=== PATIENT | male | born 1940 | race African-American/Black ===

== ENCOUNTER 2016-05-12 15:17 | Emergency (ER) | payer MEDICARE, MEDICAID ==
[~2016-05-12] VITALS: Ht 167.6 cm; Wt 70.3 kg
[~2016-05-12 15:17] MED LIST: ALPRAZOLAM0.25 MG ORAL; ANACIN BC; BENTYL10 MG ORAL; LINZESS145 MCG PO; LOPERAMIDE1 MG/7.5 M PO; NORCO 5-325 TA1 EACH PO; NUCYNTA ER100 MG PO; TEMAZEPAM30 MG ORAL; TRAMADOL HCL50 MG ORAL
[2016-05-12 16:49] VITALS: BP 94/66
[2016-05-12] MEDS ORDERED: Lidocaine 1% MPF 10mg/ml 5ml INJ ONE (17:00)
--- NOTE | 2016-05-12 17:18 | Diagnostic Imaging Report ---
Indication: PAIN Technique: 3 views right hand Comparison: none Findings: There are degenerative proliferative changes of the distal ulna and degenerative remodeling of the radioulnar joint. There is degenerative narrowing of the radiocarpal joint. There is heterotopic ossification adjacent to the ulnar styloid, may reflect old trauma. No definite acute fractures, dislocations, or osseous erosions. Is old healed fracture deformity of the first minute carpal. There are mild degenerative changes of the third fourth and fifth distal interphalangeal joints. Punctate metallic radiopaque foreign bodies are seen within the soft tissues of the distal fourth digit. There are vascular calcifications Impression: Degenerative and posttraumatic changes, as described Foreign bodies within the distal fourth digit No acute bony trauma or acute osseous erosions Findings discussed by phone with Dr. Ramos previously
[2016-05-12] MEDS ORDERED: Tylenol #3 tab (300mg/30mg) ORAL ONE (17:30)
[2016-05-12] MEDS ORDERED: ACETAMINOPHEN-1 EAC1 ORAL (17:32)
--- NOTE | 2016-05-12 17:34 | Emergency Room Report ---
History of Present Illness General Chief Complaint: Pain Source: Patient Present Illness HPI The patient is a 76 yo M presenting with R wrist pain which began two days prior. The pain is described as an 8/10 dull ache and is worse with movement or touch. No radiating pain. The patient denies any prior injury to the wrist and is unsure of why the pain began. The patient denies known history of gout or arthritis. The patient denies N, V, F, chills, CP, SOB, diaphoresis, numbness.tingling. Allergies: Coded Allergies: PENICILLINS (Verified Allergy, 04/16/12) Patient History Past Medical History: see triage record Pertinent Family History: none Reviewed Nursing Documentation: PMH: Agreed, PSxH: Agreed Nursing Documentation-PMH Past Medical History: No History, Except For Hx Cardiac Problems: No Hx Asthma: Yes Hx Cancer: Yes - LYMPHOMA, RIGHT EYE Hx Gastrointestinal Problems: Yes Hx Neurological Problems: No Review of Systems All Other Systems: negative except mentioned in HPI Physical Exam Vital Signs Date Time Temp Pulse Resp B/P Pulse Ox O2 Delivery O2 Flow Rate FiO2 05/12/16 15:44 97.9 94 16 94/66 100 Room Air Sp02 EP Interpretation: reviewed, normal General Appearance: no apparent distress, alert, GCS 15, non-toxic Head: normocephalic, atraumatic Eyes: bilateral eye PERRL, bilateral eye normal inspection ENT: hearing grossly normal, normal pharynx, no angioedema, normal voice Musculoskeletal: digits/nails normal, decreased range of motion - decreased wrist AROM , tender - TTP diffusely over R wrist Neurologic: alert, oriented x3, responsive, motor strength/tone normal Psychiatric: judgement/insight normal, memory normal, mood/affect normal, no suicidal/homicidal ideation Skin: other - erythema to R wrist Lymphatic: no adenopathy Procedures Splinting Splinting : Consent: Verbal Location: R wrist Pre-Made Type: velcro Splint: wrist Pre-Proc Neuro Vasc Exam: normal Post-Proc Neuro Vasc Exam: normal Patient Tolerated: Well Complications: None Additional Procedure Procedure Narrative Joint aspiration was attempted for the R wrist. The skin was cleaned with betadine. 3mL of lidocaine w.o epi was used for local anaesthesia. A 20g needle was used for aspiration of the joint. No fluid was seen. Medical Decision Making PA Attestation Dr. Ramos is my supervising physician. Patient management was discussed with my supervising physician Diagnostic Impression: Primary Impression: Osteoarthritis ER Course The patient is a 76 yo M presenting with R wrist pain which began two days prior DDx: arthritis, gout, septic joint, sprain PE: vitals wnl. NAD. R wrist: there is mild erythema and edema to the wrist. TTP diffusely. Decreased AROM of wrist. SILT. Joint aspiration was attempted for the R wrist. The skin was cleaned with betadine. 3mL of lidocaine w.o epi was used for local anaesthesia. A 20g needle was used for aspiration of the joint. No fluid was seen. The patient has chosen to leave before laboratory results. The patient understands the risks of this. Labs: No leukocytosis. Uric acid WNL. Patient was given tylenol #3 for pain. ER precautions given. Patient will FU with PMD. Patient given prescription for indomethacin. Other X-Ray Diagnostic Results Other X-Ray Diagnostic Results : X-Ray Ordered: R hand Date: May 13, 2016 EP Interpretation: Yes Findings: no fractures, no dislocation, no soft tissue swelling Number of Views: 3 PA Scribe Text I'm acting as scribe for my supervising physician. My supervising physician's interpretation of the R hand xrays are there are no fractures, dislocations or soft tissue swelling. Last Vital Signs Date Time Temp Pulse Resp B/P Pulse Ox O2 Delivery O2 Flow Rate FiO2 05/12/16 17:03 97.9 05/12/16 16:49 89 16 94/66 100 Room Air Status: improved Disposition: HOME, SELF-CARE Condition: Improved Scripts Indomethacin (INDOMETHACIN) 50 Mg Capsule 50 MG PO Q8HR, #30 CAP Prov: TERZIAN,DAJUAN P.A. 05/12/16 Acetaminophen With Codeine (T#3) (TYLENOL #3 TAB*) Y Tab 1 TAB ORAL Q4H Y for For Pain, #15 TAB Prov: TERZIAN,DAJUAN P.A. 05/12/16 Patient Instructions: Arthritis Additional Instructions: I discussed my findings with the patient. All questions and concerns have been answered. Treatment and medication compliance have been addressed. I advised the patient that they need to follow up with PMD in 3-5 days. Return to ED if pain remains or worsens, numbness or tingling occurs, new rash is noticed, fever is noticed, or if needed for any reason. Patient verbalized understanding of discharge instructions. DAJUAN MASTERS May 12, 2016 17:34
[2016-05-12 17:50] VITALS: BP 104/66
[2016-05-12 17:53] LABS: BASOPHILS % (AUTO) 0.9 % (0.0-2.0); EOSINOPHILS % (AUTO) 0.5 % (0.0-3.0); LYMPHOCYTES % (AUTO) 12.5 % (20.0-45.0); MEAN CORPUSCULAR HEMOGLOBIN 31.3 PG (27.0-31.0); MEAN CORPUSCULAR HGB CONC 31.7 G/DL (32.0-36.0); MEAN CORPUSCULAR VOLUME 99 FL (80-99); MEAN PLATELET VOLUME 7.2 FL (6.5-10.1); MONOCYTES % (AUTO) 12.7 % (1.0-10.0); NEUTROPHILS % (AUTO) 73.5 % (45.0-75.0); PLATELET COUNT 231 K/UL (150-450); RED BLOOD COUNT 3.82 M/UL (4.70-6.10); RED CELL DISTRIBUTION WIDTH 13.9 % (11.6-14.8); WHITE BLOOD COUNT 10.2 K/UL (4.8-10.8)
[2016-05-12 18:13] LABS: ALANINE AMINOTRANSFERASE 6 U/L (3-41); ALBUMIN/GLOBULIN RATIO 1.4 (1.0-2.7); ANION GAP 20 (5-15); ASPARTATE AMINO TRANSFERASE 19 U/L (5-40); CALCIUM 9.3 mg/dL (8.6-10.2); CARBON DIOXIDE 19 mEQ/L (20-30); CHLORIDE 100 mEQ/L (98-107); CREATININE 1.3 mg/dL (0.7-1.2); HEMOLYSIS 30; POTASSIUM 4.5 mEQ/L (3.4-4.9); SODIUM 139 mEQ/L (135-145); TOTAL PROTEIN 7.3 g/dL (6.6-8.7)
[2016-05-12] MEDS ORDERED: INDOMETHACIN50 MG PO (18:17)
[2016-05-12 19:11] LABS: BILIRUBIN,DIRECT 0.2 mg/dL (0.1-0.3)
== END 2016-05-12 17:53 | disposition home or self-care (01) ==
LOC: EMR 16:40
DX: M19.031 Primary osteoarthritis, right wrist (principal); M25.531 Pain in right wrist; Z88.0 Allergy status to penicillin; Z85.89 Personal history of malignant neoplasm of other organs and systems
CPT/HCPCS: 29260; 36415; 80053; 82248; 84550; 85025; 99284

== ENCOUNTER → 2016-06-27 | Outpatient (CLI) | payer MEDICARE, MEDICAID ==
[~2016-06-27] MED LIST changes: +ACETAMINOPHEN-1 EAC1 ORAL; +INDOMETHACIN50 MG PO
[2016-06-27 15:09] VITALS: BP 125/78
--- NOTE | 2016-06-27 19:29 | Consultation ---
DATE OF CONSULTATION: 06/27/2016 CHIEF COMPLAINT: Referred to us for evaluation of colonoscopy. PAST MEDICAL HISTORY: 1. Hepatitis C. 2. History of gastric ulcer, H. pylori - negative. 3. Arthritis. 4. Gout. 5. Diverticulosis. Last endoscopy was done in February 2012. 6. Last colonoscopy was done on the October 2011. PAST SURGICAL HISTORY: History of eye surgery on the right side. MEDICATIONS: Please see medication reconciliation list. FAMILY HISTORY: Noncontributory. SOCIAL HISTORY: The patient denies any tobacco, alcohol, or drug abuse. ALLERGIES: Penicillin. PHYSICAL EXAMINATION: VITAL SIGNS: Temperature 97.5, blood pressure 125/78, pulse 83, respirations 20. Height is 5 feet 6 inches weight 163. HEENT: Normocephalic and atraumatic. Sclerae anicteric. NECK: Supple. No evidence of lymphadenopathy. CARDIOVASCULAR: Regular rate and rhythm. Plus S1 and S2. LUNGS: Clear to auscultation bilaterally. ABDOMEN: Positive bowel sounds. Soft and nontender. No rebound. No guarding. No peritoneal sign. EXTREMITIES: No cyanosis. No clubbing. No edema. ASSESSMENT: Hepatitis C. the patient got treatment by Dr. Dai at [facility]. According to him, he already had followup laboratories and everything was cleared and he said he was cured and no further followup was needed. In terms of the patient's GI standpoint, the patient needs a colonoscopy given it is in 5 years from the last one but the patient is not adamantly refuses, he does not want any anoscope, so we ordered a stool for DNA testing for colon cancer. We gave a prescription to him to take . Meanwhile we told him if he change his mind to have a colonoscopy to call us back. I want to thank, Dr. Maury Grover for this kind referral. Talat Alvarado M.D. DR: Fer JOB#: [id number] CC: Maury Grover M.D.; Fax#: [phone]
== END | disposition home or self-care (01) ==
LOC: PAN 10:25
DX: B19.20 Unspecified viral hepatitis C without hepatic coma (principal); Z88.0 Allergy status to penicillin; M19.90 Unspecified osteoarthritis, unspecified site
CPT/HCPCS: 99201

== ENCOUNTER 2016-09-17 14:12 | Emergency (ER) | payer MEDICARE, MEDICAID ==
[~2016-09-17] VITALS: Ht 167.6 cm; Wt 72.6 kg
[2016-09-17 14:30] VITALS: BP 164/96
--- NOTE | 2016-09-17 14:39 | Emergency Room Report ---
History of Present Illness General Chief Complaint: Generalized Weakness Source: Patient Present Illness HPI Patient is a 76-year-old male who presented after increased generalized weakness. Patient reported having generalized body aches as well as abdominal pain. Patient said this had onset over the past one to 2 days. Patient reported not being able eat as well as a generalized weakness. He denies any recent fever. He reports running out of his pain medication approximately one week ago. The patient stated that he had not been vomiting. He denied diarrhea. He denied black or bloody stools. Allergies: Coded Allergies: PENICILLINS (Verified Allergy, 04/16/12) Patient History Past Medical History: see triage record Reviewed Nursing Documentation: PMH: Agreed, PSxH: Agreed Nursing Documentation-PMH Past Medical History: No History, Except For Hx Cardiac Problems: No Hx Asthma: Yes Hx COPD: Yes Hx Cancer: Yes - LYMPHOMA, RIGHT EYE Hx Gastrointestinal Problems: Yes Hx Neurological Problems: No Review of Systems All Other Systems: negative except mentioned in HPI Physical Exam Vital Signs Date Time Temp Pulse Resp B/P Pulse Ox O2 Delivery O2 Flow Rate FiO2 09/17/16 14:22 97.7 104 18 164/96 98 Room Air Sp02 EP Interpretation: reviewed, normal General Appearance: normal inspection, well appearing, no apparent distress, alert, GCS 15, non-toxic Head: atraumatic ENT: normal ENT inspection, hearing grossly normal, normal voice Neck: normal inspection, full range of motion, supple, no bony tend Respiratory: normal inspection, lungs clear, normal breath sounds, no respiratory distress, no retraction, no wheezing Cardiovascular #1: regular rate, rhythm, no edema Gastrointestinal: normal inspection, normal bowel sounds, non tender, soft, no guarding, no hernia Genitourinary: no CVA tenderness Musculoskeletal: normal inspection, back normal, normal range of motion Neurologic: normal inspection, alert, oriented x3, responsive, speech normal Psychiatric: normal inspection, judgement/insight normal, mood/affect normal Skin: normal inspection, normal color, no rash Medical Decision Making Diagnostic Impression: Primary Impression: Abdominal pain Additional Impression: Renal insufficiency ER Course Patient presented for generalized weakness and abdominal pain. Differential diagnoses included ischemic bowel, appendicitis, perforated viscus, abdominal aortic aneurysm, inferior myocardial infarction, viral gastroenteritis, medication withdrawal, renal failure Because of complexity of patient's case laboratory testing and imaging studies were ordered.EKG interpreted by me showed normal sinus rhythm with a rate of [address] or T wave changes. Patient was started on IV fluids. The patient stated that he no longer wanted to remain in the hospital. The patient' s laboratory testing was not available at the time of discussion. The patient was advised risk benefits alternatives of leaving AGAINST MEDICAL ADVICE and he indicated understanding and all questions are answered patient still continued want to leave and signed AGAINST MEDICAL ADVICE. Despite risks including but not limited to disability and worsening of current lifestyle. The patient stated he would follow up with Dr. Grover tomorrow Labs Test 09/17/16 15:30 09/17/16 15:37 Urine Color Yellow Urine Appearance Clear Urine pH 5 (4.5-8.0) Urine Specific [place] 1.025 (1.005-1.035) Urine Protein 2+ (NEGATIVE) Urine Glucose (UA) Negative (NEGATIVE) Urine Ketones 2+ (NEGATIVE) Urine Occult Blood 3+ (NEGATIVE) Urine Nitrite Positive (NEGATIVE) Urine Bilirubin Negative (NEGATIVE) Urine Urobilinogen Normal MG/DL (0.0-1.0) Urine Leukocyte Esterase 2+ (NEGATIVE) Urine RBC 5-10 /HPF (0 - 0) Urine WBC 2-4 /HPF (0 - 0) Urine Squamous Epithelial Cells None /LPF (NONE/OCC) Urine Amorphous Sediment Few /LPF (NONE) Urine Bacteria Few /HPF (NONE) White Blood Count 10.2 K/UL (4.8-10.8) Red Blood Count 4.48 M/UL (4.70-6.10) Hemoglobin 14.4 G/DL (14.2-18.0) Hematocrit 43.2 % (42.0-52.0) Mean Corpuscular Volume 97 FL (80-99) Mean Corpuscular Hemoglobin 32.2 PG (27.0-31.0) Mean Corpuscular Hemoglobin Concent 33.4 G/DL (32.0-36.0) Red Cell Distribution Width 12.9 % (11.6-14.8) Platelet Count 254 K/UL (150-450) Mean Platelet Volume 6.7 FL (6.5-10.1) Neutrophils (%) (Auto) 73.3 % (45.0-75.0) Lymphocytes (%) (Auto) 14.1 % (20.0-45.0) Monocytes (%) (Auto) 11.1 % (1.0-10.0) Eosinophils (%) (Auto) 0.4 % (0.0-3.0) Basophils (%) (Auto) 1.2 % (0.0-2.0) Sodium Level 135 mEQ/L (135-145) Potassium Level 4.7 mEQ/L (3.4-4.9) Chloride Level 96 mEQ/L (98-107) Carbon Dioxide Level 21 mEQ/L (20-30) Anion Gap 18 (5-15) Blood Urea Nitrogen 20 mg/dL (7-23) Creatinine 1.6 mg/dL (0.7-1.2) Estimat Glomerular Filtration Rate mL/min (>60) Glucose Level 92 mg/dL (74-106) Calcium Level 10.0 mg/dL (8.6-10.2) Total Bilirubin 1.5 mg/dL (0.0-1.2) Direct Bilirubin 0.2 mg/dL (0.1-0.3) Aspartate Amino Transf (AST/SGOT) 17 U/L (5-40) Alanine Aminotransferase (ALT/SGPT) 6 U/L (3-41) Alkaline Phosphatase 57 U/L (40-129) Troponin I < 0.30 ng/mL (<=0.30) Total Protein 8.7 g/dL (6.6-8.7) Albumin 4.6 g/dL (3.5-5.2) Globulin 4.1 g/dL Albumin/Globulin Ratio 1.1 (1.0-2.7) Lipase 13 U/L (< 60) Last Vital Signs Date Time Temp Pulse Resp B/P Pulse Ox O2 Delivery O2 Flow Rate FiO2 09/17/16 14:30 97.7 18 164/96 98 Room Air 09/17/16 14:22 104 Status: improved Disposition: AGAINST MEDICAL ADVICE Condition: Unknown Charlie Lopez Sep 17, 2016 14:39
[2016-09-17 16:25] VITALS: BP 164/96
[2016-09-17 16:27] LABS: BASOPHILS % (AUTO) 1.2 % (0.0-2.0); EOSINOPHILS % (AUTO) 0.4 % (0.0-3.0); LYMPHOCYTES % (AUTO) 14.1 % (20.0-45.0); MEAN CORPUSCULAR HEMOGLOBIN 32.2 PG (27.0-31.0); MEAN CORPUSCULAR HGB CONC 33.4 G/DL (32.0-36.0); MEAN CORPUSCULAR VOLUME 97 FL (80-99); MEAN PLATELET VOLUME 6.7 FL (6.5-10.1); MONOCYTES % (AUTO) 11.1 % (1.0-10.0); NEUTROPHILS % (AUTO) 73.3 % (45.0-75.0); PLATELET COUNT 254 K/UL (150-450); RED BLOOD COUNT 4.48 M/UL (4.70-6.10); RED CELL DISTRIBUTION WIDTH 12.9 % (11.6-14.8); WHITE BLOOD COUNT 10.2 K/UL (4.8-10.8)
[2016-09-17 16:28] LABS: ALANINE AMINOTRANSFERASE 6 U/L (3-41); ALBUMIN/GLOBULIN RATIO 1.1 (1.0-2.7); ANION GAP 18 (5-15); ASPARTATE AMINO TRANSFERASE 17 U/L (5-40); CARBON DIOXIDE 21 mEQ/L (20-30); CHLORIDE 96 mEQ/L (98-107); CREATININE 1.6 mg/dL (0.7-1.2); HEMOLYSIS 2; LIPASE 13 U/L (< 60); POTASSIUM 4.7 mEQ/L (3.4-4.9); SODIUM 135 mEQ/L (135-145); TOTAL PROTEIN 8.7 g/dL (6.6-8.7)
[2016-09-17 16:28] LABS: APPEARANCE,URINE CLEAR; KETONES,URINE 2+ (NEGATIVE); LEUKOCYTE ESTERASE ,URINE 2+ (NEGATIVE); NITRITE,URINE POSITIVE (NEGATIVE); PH,URINE 5 (4.5-8.0); PROTEIN,URINE 2+ (NEGATIVE); UROBILINOGEN,URINE NORMAL MG/DL (0.0-1.0)
[2016-09-17 16:40] LABS: AMORPHOUS SEDIMENT,UR FEW /LPF; BACTERIA,URINE FEW /HPF
[2016-09-17 16:41] LABS: BILIRUBIN,DIRECT 0.2 mg/dL (0.1-0.3)
[2016-09-17 16:42] LABS: TROPONIN I < 0.30 ng/mL (<=0.30)
== END 2016-09-17 16:25 | disposition left against medical advice (07) ==
LOC: EMR 14:47
DX: R51 Headache (principal); R10.9 Unspecified abdominal pain; R53.1 Weakness; J44.9 Chronic obstructive pulmonary disease, unspecified; Z85.72 Personal history of non-Hodgkin lymphomas; Z88.0 Allergy status to penicillin; N28.9 Disorder of kidney and ureter, unspecified
CPT/HCPCS: 36415; 80053; 81003; 82248; 82962; 83690; 84484; 85025; 93005; 96374; 96375; 99284; J2405; J7040

== ENCOUNTER 2016-10-11 12:57 | Outpatient (CLI) | payer MEDICARE, MEDICAID ==
[2016-10-11 13:20] VITALS: BP 133/84
[2016-10-11 14:49] LABS: BASOPHILS % (AUTO) 0.8 % (0.0-2.0); EOSINOPHILS % (AUTO) 1.1 % (0.0-3.0); LYMPHOCYTES % (AUTO) 22.2 % (20.0-45.0); MEAN CORPUSCULAR HEMOGLOBIN 31.6 PG (27.0-31.0); MEAN CORPUSCULAR HGB CONC 32.3 G/DL (32.0-36.0); MEAN CORPUSCULAR VOLUME 98 FL (80-99); MEAN PLATELET VOLUME 6.3 FL (6.5-10.1); MONOCYTES % (AUTO) 10.8 % (1.0-10.0); NEUTROPHILS % (AUTO) 65.2 % (45.0-75.0); PLATELET COUNT 239 K/UL (150-450); RED BLOOD COUNT 3.84 M/UL (4.70-6.10); RED CELL DISTRIBUTION WIDTH 13.7 % (11.6-14.8); WHITE BLOOD COUNT 7.3 K/UL (4.8-10.8)
[2016-10-11 15:09] LABS: ALANINE AMINOTRANSFERASE 7 U/L (3-41); ALBUMIN/GLOBULIN RATIO 1.3 (1.0-2.7); AMYLASE 80 U/L (10-110); ANION GAP 13 (5-15); ASPARTATE AMINO TRANSFERASE 17 U/L (5-40); CALCIUM 9.2 mg/dL (8.6-10.2); CARBON DIOXIDE 21 mEQ/L (20-30); CHLORIDE 104 mEQ/L (98-107); CREATININE 1.3 mg/dL (0.7-1.2); HEMOLYSIS 7; LIPASE 29 U/L (< 60); SODIUM 138 mEQ/L (135-145); TOTAL PROTEIN 7.1 g/dL (6.6-8.7)
--- NOTE | 2016-10-11 15:19 | GI Progress Note ---
Assessment/Plan Problems: (1) Abdominal bloating ICD Codes: R14.0 - Abdominal distension (gaseous) SNOMED: 812747991 (2) Constipation ICD Codes: K59.00 - Constipation, unspecified SNOMED: 17857810 (3) Abdominal pain ICD Codes: R10.9 - Unspecified abdominal pain SNOMED: 44376461 Status: stable Status Narrative Seen with Dr. Alvarado. Assessment/Plan patient refusing colonoscopy cont [facility] lab draws; CBC, CMP, CEA, CA19-9, amylase/lipase ordered Abdominal U/S rx MVI daily RTC after imaging studies Subjective Subjective abdominal distention / bloating weakness in leg general fatigue Objective Last 24 Hour Vital Signs Date Time Temp Pulse Resp B/P Pulse Ox O2 Delivery O2 Flow Rate FiO2 10/11/16 13:20 97.6 86 16 133/84 96 Laboratory Tests Test 10/11/16 13:53 White Blood Count 7.3 K/UL (4.8-10.8) Red Blood Count 3.84 M/UL (4.70-6.10) L Hemoglobin 12.1 G/DL (14.2-18.0) L Hematocrit 37.6 % (42.0-52.0) L Mean Corpuscular Volume 98 FL (80-99) Mean Corpuscular Hemoglobin 31.6 PG (27.0-31.0) H Mean Corpuscular Hemoglobin Concent 32.3 G/DL (32.0-36.0) Red Cell Distribution Width 13.7 % (11.6-14.8) Platelet Count 239 K/UL (150-450) Mean Platelet Volume 6.3 FL (6.5-10.1) L Neutrophils (%) (Auto) 65.2 % (45.0-75.0) Lymphocytes (%) (Auto) 22.2 % (20.0-45.0) Monocytes (%) (Auto) 10.8 % (1.0-10.0) H Eosinophils (%) (Auto) 1.1 % (0.0-3.0) Basophils (%) (Auto) 0.8 % (0.0-2.0) Sodium Level 138 mEQ/L (135-145) Potassium Level 4.0 mEQ/L (3.4-4.9) Chloride Level 104 mEQ/L (98-107) Carbon Dioxide Level 21 mEQ/L (20-30) Anion Gap 13 (5-15) Blood Urea Nitrogen 23 mg/dL (7-23) Creatinine 1.3 mg/dL (0.7-1.2) H Estimat Glomerular Filtration Rate mL/min (>60) Glucose Level 88 mg/dL (74-106) Calcium Level 9.2 mg/dL (8.6-10.2) Total Bilirubin 0.7 mg/dL (0.0-1.2) Aspartate Amino Transf (AST/SGOT) 17 U/L (5-40) Alanine Aminotransferase (ALT/SGPT) 7 U/L (3-41) Alkaline Phosphatase 48 U/L (40-129) Total Protein 7.1 g/dL (6.6-8.7) Albumin 4.1 g/dL (3.5-5.2) Globulin 3.0 g/dL Albumin/Globulin Ratio 1.3 (1.0-2.7) Amylase Level 80 U/L (10-110) Lipase 29 U/L (< 60) Carcinoembryonic Antigen Pending General Appearance: WD/WN, no apparent distress, alert Cardiovascular: normal rate Respiratory/Chest: lungs clear, normal breath sounds, no respiratory distress Abdominal Exam: normal bowel sounds, non tender, soft, no organomegaly, no mass Genitourinary/Rectal: normal genital exam Extremities: normal range of motion Rhonda Osborne N.P. Oct 11, 2016 15:19
== END 2016-10-11 13:45 | disposition home or self-care (01) ==
LOC: PAN 12:57
DX: R14.0 Abdominal distension (gaseous) (principal); K59.00 Constipation, unspecified; R10.9 Unspecified abdominal pain
CPT/HCPCS: 36415; 80053; 82150; 82378; 83690; 85025; G0463; 99211

== ENCOUNTER 2018-02-17 14:43 | Inpatient (IN) | payer MEDICARE, MEDICAID ==
[~2018-02-17] VITALS: Ht 170.2 cm; Wt 72.6 kg
[2018-02-17 15:15] VITALS: BP 138/88
[2018-02-17 15:33] LABS: BASOPHILS % (AUTO) 0.7 % (0.0-2.0); EOSINOPHILS % (AUTO) 0.1 % (0.0-3.0); HEMATOCRIT 34.8 % (42.0-52.0); HEMOGLOBIN 12.1 G/DL (14.2-18.0); LYMPHOCYTES % (AUTO) 11.8 % (20.0-45.0); MEAN CORPUSCULAR VOLUME 90 FL (80-99); NEUTROPHILS % (AUTO) 73.4 % (45.0-75.0); PLATELET COUNT 303 K/UL (150-450); RED BLOOD COUNT 3.88 M/UL (4.70-6.10); RED CELL DISTRIBUTION WIDTH 12.7 % (11.6-14.8); WHITE BLOOD COUNT 8.7 K/UL (4.8-10.8)
[2018-02-17] MEDS ORDERED: CRESTOR10 M2 ORAL (15:35)
[2018-02-17] MEDS ORDERED: ASPIR 8181 MG ORAL (15:35)
[2018-02-17] MEDS ORDERED: NAPROXEN250 MG ORAL (15:35)
[2018-02-17] MEDS ORDERED: RELPAX40 MG PO (15:38)
[2018-02-17] MEDS ORDERED: NUCYNTA50 MG PO (15:38)
[2018-02-17 15:48] LABS: ANION GAP 13 mmol/L (5-15); BLOOD UREA NITROGEN 18 mg/dL (7-18); CALCIUM 9.9 MG/DL (8.5-10.1); CARBON DIOXIDE 25 MMOL/L (21-32); CHLORIDE 101 MMOL/L (98-107); CREATININE 1.3 MG/DL (0.55-1.30); POTASSIUM 3.3 MMOL/L (3.5-5.1); SODIUM 139 MMOL/L (136-145)
[2018-02-17 15:54] LABS: AMMONIA < 10 umol/L (11-32)
[2018-02-17 16:01] LABS: ALANINE AMINOTRANSFERASE 13 U/L (12-78); ALBUMIN 2.7 G/DL (3.4-5.0); ALBUMIN/GLOBULIN RATIO 0.5 (1.0-2.7); ALKALINE PHOSPHATASE 69 U/L (46-116); ASPARTATE AMINO TRANSFERASE 25 U/L (15-37); BILIRUBIN,TOTAL 1.2 MG/DL (0.2-1.0); CKMB < 0.5 NG/ML (0.0-3.6); CREATINE KINASE 44 U/L (26-308)
[2018-02-17 16:18] LABS: BILIRUBIN,DIRECT 0.3 MG/DL (0.0-0.3)
[2018-02-17 17:01] VITALS: BP 155/94
[2018-02-17 17:49] VITALS: BP 136/82
--- NOTE | 2018-02-17 17:59 | Emergency Room Report ---
History of Present Illness General Chief Complaint: Pain Source: Patient Present Illness HPI 77-year-old male presents ED for evaluation. Patient brought in by daughter. States that he's been complaining of left-sided back pain for the last few days. Also appears confused and lethargic for last few days. Daughter states that patient was seen at [facility] a few days ago for similar presentation but was discharge. There are no what the diagnosis was. Patient is complaining of left-sided hip pain and some right wrist pain. Daughter also states that patient took some "pain medication" earlier today. Does not know what the medication was. Patient denies alcohol or drug use. Denies headache. Denies fevers chills. No other aggravating relieving factors. Denies any other associated symptoms Allergies: Coded Allergies: PENICILLINS (Verified Allergy, 04/16/12) Patient History Past Medical History: asthma, COPD Past Surgical History: none Pertinent Family History: none Social History: Denies: smoking, alcohol use, drug use Immunizations: UTD Reviewed Nursing Documentation: PMH: Agreed; PSxH: Agreed Nursing Documentation-PMH Past Medical History: No History, Except For Hx Cardiac Problems: No Hx Asthma: Yes Hx COPD: Yes Hx Cancer: Yes - LYMPHOMA, RIGHT EYE Hx Gastrointestinal Problems: Yes Hx Neurological Problems: No Review of Systems All Other Systems: negative except mentioned in HPI Physical Exam Vital Signs Date Time Temp Pulse Resp B/P (MAP) Pulse Ox O2 Delivery O2 Flow Rate FiO2 02/17/18 14:47 98.8 114 22 143/91 96 Room Air Sp02 EP Interpretation: reviewed, normal General Appearance: no apparent distress, GCS 15, non-toxic, lethargic Head: normocephalic, atraumatic Eyes: bilateral eye normal inspection, bilateral eye PERRL ENT: normal ENT inspection Neck: normal inspection Respiratory: chest non-tender, lungs clear, normal breath sounds, speaking full sentences Cardiovascular #1: regular rate, rhythm, no edema Gastrointestinal: normal bowel sounds, non tender, soft, non-distended, no guarding, no rebound Rectal: deferred Genitourinary: no CVA tenderness Musculoskeletal: tender - L hip. R wrist Neurologic: other - lethargic Psychiatric: other - lethargic Skin: normal inspection Lymphatic: normal inspection Medical Decision Making Diagnostic Impression: Primary Impression: Altered mental status Qualified Codes: R41.82 - Altered mental status, unspecified ER Course Hospital Course 77-year-old M presents to ED with altered mental status. R wrist pain, L hip pain Differential diagnoses include: fracture, EtOH, drug abuse Clinical course patient placed on stretcher. On fibreglass lay up worker. After initial history and physical ordered labs, IV fluids, EKG, CT brain/spine/pelvis Labs reviewed-electrolytes okay, no leukocytosis, hemoglobin/hematocrit stable, ETOH negative CT brain shows no acute pathology, CT Pelvis - no acute fx, CT L spine severe DJD EKG- NSR, no acute ischemic changes interpreted by me patient remains lethargic. Possible polypharmacy. Utox pending patient will require admission for observation. Patient will be admitted to Dr Reilly poole. I feel this is a highly complex case requiring extensive working including EKG/Rhythm strip, Xray/CT/US, Blood/urine lab work, repeat exams while in ED, and administration of strong opiates/narcotics for pain control, admission to hospital or close patient follow up. Diagnosis -altered mental status Stable and discharged to home. Followup with PMD. Return to ED if symptoms recur or worsen Labs Test 02/17/18 15:15 White Blood Count 8.7 K/UL (4.8-10.8) Red Blood Count 3.88 M/UL (4.70-6.10) Hemoglobin 12.1 G/DL (14.2-18.0) Hematocrit 34.8 % (42.0-52.0) Mean Corpuscular Volume 90 FL (80-99) Mean Corpuscular Hemoglobin 31.1 PG (27.0-31.0) Mean Corpuscular Hemoglobin Concent 34.7 G/DL (32.0-36.0) Red Cell Distribution Width 12.7 % (11.6-14.8) Platelet Count 303 K/UL (150-450) Mean Platelet Volume 6.2 FL (6.5-10.1) Neutrophils (%) (Auto) 73.4 % (45.0-75.0) Lymphocytes (%) (Auto) 11.8 % (20.0-45.0) Monocytes (%) (Auto) 14.0 % (1.0-10.0) Eosinophils (%) (Auto) 0.1 % (0.0-3.0) Basophils (%) (Auto) 0.7 % (0.0-2.0) Sodium Level 139 MMOL/L (136-145) Potassium Level 3.3 MMOL/L (3.5-5.1) Chloride Level 101 MMOL/L (98-107) Carbon Dioxide Level 25 MMOL/L (21-32) Anion Gap 13 mmol/L (5-15) Blood Urea Nitrogen 18 mg/dL (7-18) Creatinine 1.3 MG/DL (0.55-1.30) Estimat Glomerular Filtration Rate mL/min (>60) Glucose Level 112 MG/DL (74-106) Lactic Acid Level 1.20 mmol/L (0.4-2.0) Calcium Level 9.9 MG/DL (8.5-10.1) Total Bilirubin 1.2 MG/DL (0.2-1.0) Direct Bilirubin 0.3 MG/DL (0.0-0.3) Aspartate Amino Transf (AST/SGOT) 25 U/L (15-37) Alanine Aminotransferase (ALT/SGPT) 13 U/L (12-78) Alkaline Phosphatase 69 U/L (46-116) Ammonia < 10 umol/L (11-32) Total Creatine Kinase 44 U/L (26-308) Creatine Kinase MB < 0.5 NG/ML (0.0-3.6) Creatine Kinase MB Relative Index 1.1 Troponin I 0.000 ng/mL (0.000-0.056) Pro-B-Type Natriuretic Peptide 691 pg/mL (0-125) Total Protein 8.6 G/DL (6.4-8.2) Albumin 2.7 G/DL (3.4-5.0) Globulin 5.9 g/dL Albumin/Globulin Ratio 0.5 (1.0-2.7) Salicylates Level 0.2 ug/mL (2.8-20) Acetaminophen Level < 2 MCG/ML (10-30) Serum Alcohol < 3 mg/dL CT/MRI/US Diagnostic Results CT/MRI/US Diagnostic Results #1: Imaging Test Ordered: CT Head Impression no acute process CT/MRI/US Diagnostic Results #2: Imaging Test Ordered: CT Pelvis Impression subacute buckle fx for sacrum CT/MRI/US Diagnostic Results #3: Imaging Test Ordered: CT L spine Impression No acute fracture or malalignment. Advanced degenerative changes worst at L5-S1 where there is bilateral foraminal narrowing and moderate to severe spinal stenosis. Last Vital Signs Date Time Temp Pulse Resp B/P (MAP) Pulse Ox O2 Delivery O2 Flow Rate FiO2 02/17/18 17:01 98.3 102 18 155/94 98 02/17/18 15:15 Room Air Status: improved Disposition: ADMITTED INPATIENT Condition: Serious Referrals: NOT CHOSEN IPA/,REFERRING (PCP) Giovanni Meek MD Feb 17, 2018 17:59
[2018-02-17 18:40] VITALS: BP 147/82
[2018-02-17 18:46] LABS: APPEARANCE,URINE SLIGHTLY CLOUDY; BILIRUBIN, URINE NEGATIVE (NEGATIVE); GLUCOSE, URINE (UA) NEGATIVE (NEGATIVE); KETONES,URINE NEGATIVE (NEGATIVE); LEUKOCYTE ESTERASE ,URINE 2+ (NEGATIVE); NITRITE,URINE NEGATIVE (NEGATIVE); PH,URINE 6 (4.5-8.0); PROTEIN,URINE 2+ (NEGATIVE); UROBILINOGEN,URINE 1 MG/DL (0.0-1.0)
[2018-02-17 18:49] LABS: COLOR,URINE YELLOW
[2018-02-17] MEDS ORDERED: CIPROFLOXACIN500 M2 ORAL (19:07)
[2018-02-17] MEDS ORDERED: NAPROXEN375 M2 ORAL (19:07)
[2018-02-17 20:00] VITALS: BP 132/82
[2018-02-17] MEDS ORDERED: Milk of Magnesia 30ml Ud ORAL PRN ×2 (21:45→22:30)
[2018-02-17] MEDS ORDERED: Naproxen 375mg tab ORAL PRN (22:30)
[2018-02-17] MEDS ORDERED: ALPRAZolam 0.25mg tab ORAL PRN (22:30)
[2018-02-18] VITALS: BP 140/88
[2018-02-18] MEDS: traMADol 50mg tab ORAL PRN (00:44)
[2018-02-18 04:00] VITALS: BP 141/98
[2018-02-18 08:00] VITALS: BP 146/80
[2018-02-18 08:05] LABS: BASOPHILS % (AUTO) 0.6 % (0.0-2.0); EOSINOPHILS % (AUTO) 0.2 % (0.0-3.0); HEMOGLOBIN 10.4 G/DL (14.2-18.0); LYMPHOCYTES % (AUTO) 14.1 % (20.0-45.0); MEAN CORPUSCULAR VOLUME 89 FL (80-99); MONOCYTES % (AUTO) 14.7 % (1.0-10.0); NEUTROPHILS % (AUTO) 70.4 % (45.0-75.0); PLATELET COUNT 264 K/UL (150-450); RED BLOOD COUNT 3.48 M/UL (4.70-6.10); RED CELL DISTRIBUTION WIDTH 12.6 % (11.6-14.8)
[2018-02-18 08:18] LABS: ANION GAP 13 mmol/L (5-15); BLOOD UREA NITROGEN 15 mg/dL (7-18); CALCIUM 9.4 MG/DL (8.5-10.1); CARBON DIOXIDE 21 MMOL/L (21-32); CHLORIDE 105 MMOL/L (98-107); CREATININE 1.1 MG/DL (0.55-1.30); POTASSIUM 3.4 MMOL/L (3.5-5.1); SODIUM 139 MMOL/L (136-145)
[2018-02-18] MEDS ORDERED: LORazepam Inj 2mg/ml 1ml IV SCH (08:35)
--- NOTE | 2018-02-18 08:40 | History & Physical ---
History and Physical History & Physicial 77-year-old male presents with worsening pain and confusion. He's been complaining of left-sided back pain for the last few days, not improved. Also patient has been more confused and lethargic for last few days. Daughter states that patient was seen at [facility] ER for back pain but discharged home. He also notes left-sided hip pain and right wrist pain. Patient on chronic pain meds and followed by pain MD. Patient denies alcohol or drug use. Denies headache or head trauma. Denies fevers chills. No other aggravating relieving factors. no recent travel. excessive stress Allergies: PENICILLINS (Verified Allergy, 04/16/12) Past Medical History: asthma, COPD, pulmonary hypertension, anxiety, insomnia, possible early dementia, ho lymphoma right eye Past Surgical History: none Pertinent Family History: non-contributory to the above Social History: Denies: smoking, alcohol use, drug use; retired; cares for grandchildren; Reviewed of systems: failure to thrive; all 10 points reviewed as above; some sob and cough Physical WDWN NAD clear breath sounds bilaterally without rhonchi or wheeze [id number] without MRG NABS nontender no HSM no CCE nonfocal unsteady and some mild confusion Labs Test 02/17/18 15:15 02/17/18 18:35 02/18/18 07:16 White Blood Count 8.7 K/UL (4.8-10.8) 7.0 K/UL (4.8-10.8) Red Blood Count 3.88 M/UL (4.70-6.10) 3.48 M/UL (4.70-6.10) Hemoglobin 12.1 G/DL (14.2-18.0) 10.4 G/DL (14.2-18.0) Hematocrit 34.8 % (42.0-52.0) 31.0 % (42.0-52.0) Mean Corpuscular Volume 90 FL (80-99) 89 FL (80-99) Mean Corpuscular Hemoglobin 31.1 PG (27.0-31.0) 29.9 PG (27.0-31.0) Mean Corpuscular Hemoglobin Concent 34.7 G/DL (32.0-36.0) 33.6 G/DL (32.0-36.0) Red Cell Distribution Width 12.7 % (11.6-14.8) 12.6 % (11.6-14.8) Platelet Count 303 K/UL (150-450) 264 K/UL (150-450) Mean Platelet Volume 6.2 FL (6.5-10.1) 6.4 FL (6.5-10.1) Neutrophils (%) (Auto) 73.4 % (45.0-75.0) 70.4 % (45.0-75.0) Lymphocytes (%) (Auto) 11.8 % (20.0-45.0) 14.1 % (20.0-45.0) Monocytes (%) (Auto) 14.0 % (1.0-10.0) 14.7 % (1.0-10.0) Eosinophils (%) (Auto) 0.1 % (0.0-3.0) 0.2 % (0.0-3.0) Basophils (%) (Auto) 0.7 % (0.0-2.0) 0.6 % (0.0-2.0) Sodium Level 139 MMOL/L (136-145) 139 MMOL/L (136-145) Potassium Level 3.3 MMOL/L (3.5-5.1) 3.4 MMOL/L (3.5-5.1) Chloride Level 101 MMOL/L (98-107) 105 MMOL/L (98-107) Carbon Dioxide Level 25 MMOL/L (21-32) 21 MMOL/L (21-32) Anion Gap 13 mmol/L (5-15) 13 mmol/L (5-15) Blood Urea Nitrogen 18 mg/dL (7-18) 15 mg/dL (7-18) Creatinine 1.3 MG/DL (0.55-1.30) 1.1 MG/DL (0.55-1.30) Estimat Glomerular Filtration Rate mL/min (>60) mL/min (>60) Glucose Level 112 MG/DL (74-106) 92 MG/DL (74-106) Lactic Acid Level 1.20 mmol/L (0.4-2.0) Calcium Level 9.9 MG/DL (8.5-10.1) 9.4 MG/DL (8.5-10.1) Total Bilirubin 1.2 MG/DL (0.2-1.0) Direct Bilirubin 0.3 MG/DL (0.0-0.3) Aspartate Amino Transf (AST/SGOT) 25 U/L (15-37) Alanine Aminotransferase (ALT/SGPT) 13 U/L (12-78) Alkaline Phosphatase 69 U/L (46-116) Ammonia < 10 umol/L (11-32) Total Creatine Kinase 44 U/L (26-308) Creatine Kinase MB < 0.5 NG/ML (0.0-3.6) Creatine Kinase MB Relative Index 1.1 Troponin I 0.000 ng/mL (0.000-0.056) 0.017 ng/mL (0.000-0.056) Pro-B-Type Natriuretic Peptide 691 pg/mL (0-125) Total Protein 8.6 G/DL (6.4-8.2) Albumin 2.7 G/DL (3.4-5.0) Globulin 5.9 g/dL Albumin/Globulin Ratio 0.5 (1.0-2.7) Salicylates Level 0.2 ug/mL (2.8-20) Acetaminophen Level < 2 MCG/ML (10-30) Serum Alcohol < 3 mg/dL Urine Color Yellow Urine Appearance Slightly cloudy Urine pH 6 (4.5-8.0) Urine Specific [place] 1.015 (1.005-1.035) Urine Protein 2+ (NEGATIVE) Urine Glucose (UA) Negative (NEGATIVE) Urine Ketones Negative (NEGATIVE) Urine Blood 4+ (NEGATIVE) Urine Nitrite Negative (NEGATIVE) Urine Bilirubin Negative (NEGATIVE) Urine Urobilinogen 1 MG/DL (0.0-1.0) Urine Leukocyte Esterase 2+ (NEGATIVE) Urine RBC 5-10 /HPF (0 - 0) Urine WBC 30-40 /HPF (0 - 0) Urine Squamous Epithelial Cells None /LPF (NONE/OCC) Urine Bacteria Occasional /HPF (NONE) Urine Opiates Screen Negative (NEGATIVE) Urine Barbiturates Screen Negative (NEGATIVE) Phencyclidine (PCP) Screen Negative (NEGATIVE) Urine Amphetamines Screen Negative (NEGATIVE) Urine Benzodiazepines Screen Positive (NEGATIVE) Urine Cocaine Screen Negative (NEGATIVE) Urine Marijuana (THC) Screen Negative (NEGATIVE) IMPRESSION delium toxic metabolic encephalopathy back pain COPD Asthma chronic pain chronic insomnia PLAN PT eval MRI brain resume meds hold pain meds unless needed will need close monitoring at home impression, plan, and exam edited and reviewed in detail care discussed with Maury Tristan MD Feb 18, 2018 08:40
[2018-02-18] MEDS: Ciprofloxacin 500mg tab ORAL SCH ×2 (09:00→11:53)
[2018-02-18] MEDS ORDERED: Pantoprazole Inj IVP SCH (09:00)
[2018-02-18] MEDS: Heparin 5000 units/ml inj SUBQ SCH ×2 (09:00→21:00)
[2018-02-18] MEDS: Aspirin EC 81mg tab ORAL SCH (09:00)
[2018-02-18] MEDS: Pantoprazole Inj IVP SCH (09:00)
[2018-02-18] MEDS ORDERED: Heparin 5000 units/ml inj SUBQ SCH (09:00)
--- NOTE | 2018-02-18 10:12 | Diagnostic Imaging Report ---
Indication: Is left hip pain Technique: Noncontrast spiral acquisitions obtained through the pelvis. Multiplanar reconstructions generated. Total dose length product 420.86 mGycm. CTDIvol(s) 11.8 mGy. Dose reduction achieved using automated exposure control Comparison: none Findings: No acute fractures. There is slight buckling of the anterior sacrococcygeal junction which could indicate a subacute injury. No dislocations. There is minimal degenerative proliferative change of the bilateral hips without significant joint space narrowing. Severe degenerative changes of the lumbosacral junction are incidentally noted. There are small bilateral inguinal hernias which contain only fat. The pelvic viscera are otherwise unremarkable. Impression: Slight buckling of the anterior sacrococcygeal junction, could indicate subacute injury. Correlate with clinical findings. No definite acute bony trauma Degenerative changes of the lumbosacral junction and bilateral hips, as described Incidental finding tiny fat-containing bilateral inguinal hernias This agrees with the preliminary interpretation provided overnight by [facility] service. The CT scanner at [facility] is accredited by the [employer] and the scans are performed using protocols designed to limit radiation exposure to as low as reasonably achievable to attain images of sufficient resolution adequate for diagnostic evaluation.
--- NOTE | 2018-02-18 10:12 | Diagnostic Imaging Report ---
Indications: Back and left hip pain Technique: Spiral acquisitions obtained through the lumbar spine. Multiplanar reconstructions were generated. No IV contrast utilized. Total dose length product 411.78 mGycm. CTDIvol(s) 14.2 mGy. Dose reduction achieved using automated exposure control Comparison: Reference made to prior abdomen pelvis CT dated 02/06/2016 Findings: There is mild thoracic dextroscoliotic deformity. Otherwise normal bony alignment. There is degenerative remodeling of multiple vertebral body segments, but no evidence of traumatic height loss demonstrated. No acute lumbar fractures. There is slight buckling and sclerosis of the anterior sacrococcygeal junction, which is not evident on prior abdomen pelvis CT but does not appear to be acute. No acute fractures. No dislocations. At T11-12, there is degenerative disc narrowing and vacuum formation. No significant disc bulge or protrusion, spinal stenosis, or neural foraminal narrowing. There is mild proliferative facet arthrosis bilaterally. At T12-L1, there is minimal degenerative disc narrowing. No significant disc bulge or protrusion, spinal stenosis, or neural foraminal stenosis. There is mild facet arthrosis on the right. At L1-2, there is severe degenerative disc narrowing with vacuum formation. No significant disc bulge or protrusion or spinal stenosis. There is bilateral facet arthrosis. At L2-3, there is severe degenerative disc narrowing with vacuum formation. There is circumferential annular bulge. This, in combination with ligament flavum hypertrophy, results in moderate narrowing of the spinal canal. There is mild narrowing of the bilateral neural foramina. There is bilateral facet arthrosis which is fairly advanced. There is slight tuzs-eh-ldpt apposition of the L2 and L3 spinous processes. At L3-4, there is severe degenerative disc narrowing with vacuum formation. Circumferential annular bulge, ligament flavum hypertrophy, and short pedicles results in mild to moderate narrowing spinal canal. The neural foramina are preserved. There is amfd-[id number] apposition of the spinous processes. At L4-5, there is severe degenerative disc narrowing with vacuum formation. Circumferential annular bulge and ligamentum flavum and facet hypertrophy results in moderate narrowing of the spinal canal. There is mild narrowing of the left neural foramen. There is bilateral severe facet arthrosis and jldd-qz-vhot apposition of the spinous processes. At L5-S1, there is severe degenerative disc narrowing. Posterior osteophytes and ligamentum flavum hypertrophy result in moderate narrowing of the spinal canal. There is mild to moderate right and moderate left neural foraminal stenosis. There is facet arthrosis bilaterally. There is zpib-wv-enpr apposition of the spinous processes. The included soft tissues are unremarkable. Impression: No acute bony trauma Possible old sacral fracture Extensive degenerative changes as detailed on a level by level basis above This agrees with the preliminary interpretation provided overnight by [facility]. The CT scanner at [facility] is accredited by the [employer] and the scans are performed using protocols designed to limit radiation exposure to as low as reasonably achievable to attain images of sufficient resolution adequate for diagnostic evaluation.
--- NOTE | 2018-02-18 10:12 | Diagnostic Imaging Report ---
Indication: Altered mental status Technique: spiral acquisitions obtained through the brain. Angled axial and coronal 5 x 5 mm slices were reconstructed. No IV contrast utilized. Radiation dose was minimized using automated exposure control Total dose length product 1462.02 mGycm. CTDIvol(s) 70.38 mGy Comparison: none FINDINGS: No acute hemorrhage or edema. No mass effect or midline shift. There is age-related enlargement of the ventricles and extra axial CSF spaces. There is periventricular deep white matter ischemic change. Normal torres-white differentiation. Visualized orbits are unremarkable. Visualized sinuses are unremarkable. Intact calvarium. IMPRESSION: Chronic and age-related changes. Negative for acute intracranial bleed or mass effect This agrees with the preliminary interpretation provided overnight by [facility]. The CT scanner at [facility] is accredited by the [employer] and the scans are performed using protocols designed to limit radiation exposure to as low as reasonably achievable to attain images of sufficient resolution adequate for diagnostic evaluation
--- NOTE | 2018-02-18 10:13 | Diagnostic Imaging Report ---
Clinical Indication:Wrist pain Technique: 3 views of the right wrist Comparison: None Findings: There is extensive degenerative change of the distal radioulnar joint. There is an old healed fracture deformity of the first metacarpal. There are secondary degenerative changes of the first carpometacarpal joint. There is narrowing of the radiocarpal joint. No acute fractures. No dislocations. Bones are osteoporotic. There are vascular calcifications Impression: Extensive degenerative changes, as described No acute bony trauma
--- NOTE | 2018-02-18 10:13 | Diagnostic Imaging Report ---
Indication: Chest pain Technique: One view of the chest Comparison: none Findings: No acute infiltrates, effusions, or congestion. Tortuous calcified aorta. Normal heart size. Upper mediastinum unremarkable. There is minimal left basilar atelectasis Impression: No acute process.
[2018-02-18] MEDS ORDERED: Haloperidol 5mg/ml Inj IM SCH ×3 (10:45→17:30)
[2018-02-18] MEDS ORDERED: LORazepam Inj 2mg/ml 1ml IM PRN (10:45)
[2018-02-18] MEDS ORDERED: LORazepam Inj 2mg/ml 1ml IM SCH ×4 (10:45→18:15)
[2018-02-18] MEDS ORDERED: DiphenhydrAMINE 50mg/ml Inj IM SCH ×2 (11:30→17:30)
[2018-02-18 12:00] VITALS: BP 136/95
--- NOTE | 2018-02-18 12:54 | Consultation ---
History of Present Illness General Chief Complaint: Pain Present Illness HPI 77-year-old male presents with worsening pain and confusion. the pt was somewhat confused and agitated the pt was a poor historian easily agitated and forgetful Allergies: Coded Allergies: PENICILLINS (Verified Allergy, 04/16/12) Medication History Scheduled Aspirin* (Aspir 81*), 81 MG ORAL DAILY, (Reported) Ciprofloxacin Hcl* (Ciprofloxacin Hcl*), 500 MG ORAL EVERY 12 HOURS, (Reported) Linaclotide (Linzess), 145 MCG PO DAILY, (Reported) Naproxen* (Naprosyn*), 250 MG ORAL TWICE A DAY, (Reported) Rosuvastatin Calcium* (Crestor*), 10 MG ORAL DAILY, (Reported) Tapentadol Hcl (Nucynta), 50 MG PO BID, (Reported) Scheduled PRN Alprazolam* (Xanax*), 0.25 MG ORAL TID PRN for For Anxiety, (Reported) Naproxen* (Naproxen*), 375 MG ORAL TWICE A DAY PRN for For Pain, (Reported) Tramadol Hcl* (Ultram*), 50 MG ORAL BID PRN for For Pain, (Reported) Miscellaneous Medications Eletriptan Hydrobromide (Relpax), 20 MG PO, (Reported) Discontinued Medications Temazepam* (Temazepam*), 30 MG ORAL BEDTIME PRN for Insomnia, (Reported) Discontinued Reason: Therapy completed Patient History Limited by: medical condition History Provided By: Patient, Medical Record Healthcare decision maker Resuscitation status Full Code Advanced Directive on File No Past Medical/Surgical History Past Medical/Surgical History: (1) Osteoarthritis (2) Renal insufficiency (3) Constipation (4) Abdominal bloating (5) Abdominal pain (6) Altered mental status Review of Systems Psychiatric: Reports: prior hx, anxiety, depressed feelings, emotional problems Physical Exam General Appearance: alert, confused, agitated Last 24 Hour Vital Signs Date Time Temp Pulse Resp B/P (MAP) Pulse Ox O2 Delivery O2 Flow Rate FiO2 02/18/18 08:00 97.3 92 20 146/80 (102) 96 02/18/18 04:00 97.6 100 18 141/98 (112) 94 02/18/18 00:00 98.1 104 22 140/88 (105) 95 02/17/18 20:00 97.5 104 20 132/82 (99) 95 02/17/18 19:58 Room Air 02/17/18 18:40 98.2 105 18 147/82 98 Room Air 02/17/18 18:40 98.2 105 23 147/82 98 Room Air 02/17/18 17:49 98.3 105 18 136/82 98 Room Air 02/17/18 17:01 98.3 102 18 155/94 98 02/17/18 15:15 98.9 105 22 138/88 96 Room Air 02/17/18 14:47 98.8 114 22 143/91 96 Room Air Intake and Output 02/17/18 02/18/18 19:00 07:00 Intake Total 0 ml 100 ml Output Total 550 ml Balance 0 ml -450 ml Intake Oral 0 ml IV Total 100 ml Output Urine Total 550 ml Laboratory Tests Test 02/17/18 15:15 02/17/18 18:35 02/18/18 07:16 White Blood Count 8.7 K/UL (4.8-10.8) 7.0 K/UL (4.8-10.8) Red Blood Count 3.88 M/UL (4.70-6.10) L 3.48 M/UL (4.70-6.10) L Hemoglobin 12.1 G/DL (14.2-18.0) L 10.4 G/DL (14.2-18.0) L Hematocrit 34.8 % (42.0-52.0) L 31.0 % (42.0-52.0) L Mean Corpuscular Volume 90 FL (80-99) 89 FL (80-99) Mean Corpuscular Hemoglobin 31.1 PG (27.0-31.0) H 29.9 PG (27.0-31.0) Mean Corpuscular Hemoglobin Concent 34.7 G/DL (32.0-36.0) 33.6 G/DL (32.0-36.0) Red Cell Distribution Width 12.7 % (11.6-14.8) 12.6 % (11.6-14.8) Platelet Count 303 K/UL (150-450) 264 K/UL (150-450) Mean Platelet Volume 6.2 FL (6.5-10.1) L 6.4 FL (6.5-10.1) L Neutrophils (%) (Auto) 73.4 % (45.0-75.0) 70.4 % (45.0-75.0) Lymphocytes (%) (Auto) 11.8 % (20.0-45.0) L 14.1 % (20.0-45.0) L Monocytes (%) (Auto) 14.0 % (1.0-10.0) H 14.7 % (1.0-10.0) H Eosinophils (%) (Auto) 0.1 % (0.0-3.0) 0.2 % (0.0-3.0) Basophils (%) (Auto) 0.7 % (0.0-2.0) 0.6 % (0.0-2.0) Sodium Level 139 MMOL/L (136-145) 139 MMOL/L (136-145) Potassium Level 3.3 MMOL/L (3.5-5.1) L 3.4 MMOL/L (3.5-5.1) L Chloride Level 101 MMOL/L (98-107) 105 MMOL/L (98-107) Carbon Dioxide Level 25 MMOL/L (21-32) 21 MMOL/L (21-32) Anion Gap 13 mmol/L (5-15) 13 mmol/L (5-15) Blood Urea Nitrogen 18 mg/dL (7-18) 15 mg/dL (7-18) Creatinine 1.3 MG/DL (0.55-1.30) 1.1 MG/DL (0.55-1.30) Estimat Glomerular Filtration Rate mL/min (>60) mL/min (>60) Glucose Level 112 MG/DL (74-106) H 92 MG/DL (74-106) Lactic Acid Level 1.20 mmol/L (0.4-2.0) Calcium Level 9.9 MG/DL (8.5-10.1) 9.4 MG/DL (8.5-10.1) Total Bilirubin 1.2 MG/DL (0.2-1.0) H Direct Bilirubin 0.3 MG/DL (0.0-0.3) Aspartate Amino Transf (AST/SGOT) 25 U/L (15-37) Alanine Aminotransferase (ALT/SGPT) 13 U/L (12-78) Alkaline Phosphatase 69 U/L (46-116) Ammonia < 10 umol/L (11-32) L Total Creatine Kinase 44 U/L (26-308) Creatine Kinase MB < 0.5 NG/ML (0.0-3.6) Creatine Kinase MB Relative Index 1.1 Troponin I 0.000 ng/mL (0.000-0.056) 0.017 ng/mL (0.000-0.056) Pro-B-Type Natriuretic Peptide 691 pg/mL (0-125) H Total Protein 8.6 G/DL (6.4-8.2) H Albumin 2.7 G/DL (3.4-5.0) L Globulin 5.9 g/dL Albumin/Globulin Ratio 0.5 (1.0-2.7) L Salicylates Level 0.2 ug/mL (2.8-20) L Acetaminophen Level < 2 MCG/ML (10-30) L Serum Alcohol < 3 mg/dL Urine Color Yellow Urine Appearance Slightly cloudy Urine pH 6 (4.5-8.0) Urine Specific [place] 1.015 (1.005-1.035) Urine Protein 2+ (NEGATIVE) H Urine Glucose (UA) Negative (NEGATIVE) Urine Ketones Negative (NEGATIVE) Urine Blood 4+ (NEGATIVE) H Urine Nitrite Negative (NEGATIVE) Urine Bilirubin Negative (NEGATIVE) Urine Urobilinogen 1 MG/DL (0.0-1.0) H Urine Leukocyte Esterase 2+ (NEGATIVE) H Urine RBC 5-10 /HPF (0 - 0) H Urine WBC 30-40 /HPF (0 - 0) H Urine Squamous Epithelial Cells None /LPF (NONE/OCC) Urine Bacteria Occasional /HPF (NONE) Urine Opiates Screen Negative (NEGATIVE) Urine Barbiturates Screen Negative (NEGATIVE) Phencyclidine (PCP) Screen Negative (NEGATIVE) Urine Amphetamines Screen Negative (NEGATIVE) Urine Benzodiazepines Screen Positive (NEGATIVE) H Urine Cocaine Screen Negative (NEGATIVE) Urine Marijuana (THC) Screen Negative (NEGATIVE) Microbiology Date/Time Source Procedure Growth Status 02/17/18 18:35 Urine,Clean Catch Urine Culture - Preliminary NO GROWTH Resulted Height (Feet): 5 Height (Inches): 7.00 Weight (Pounds): 160 Medications Current Medications Medications (Trade) Dose Ordered Sig/Kaylie Route PRN Reason Start Time Stop Time Status Last Admin Dose Admin Acetaminophen (Tylenol) 650 mg Q4H PRN ORAL Mild Pain/Temp > 100.5 02/17/18 22:30 03/19/18 22:29 02/18/18 02:28 Al Hydroxide/Mg Hydroxide (Mylanta) 30 ml Q4H PRN ORAL dyspepsia 02/17/18 22:30 03/19/18 22:29 Alprazolam (Xanax) 0.25 mg TID PRN ORAL For Anxiety 02/17/18 22:30 02/24/18 22:29 Aspirin (Ecotrin) 81 mg DAILY ORAL 02/18/18 09:00 03/20/18 08:59 Ciprofloxacin (Cipro 500mg tab) 500 mg EVERY 12 HOURS ORAL 02/18/18 09:00 02/25/18 08:59 02/18/18 11:53 Diazepam (Valium) 10 mg BID ORAL 02/18/18 11:30 02/25/18 11:29 02/18/18 11:53 Fluoxetine HCl (PROzac) 20 mg DAILY ORAL 02/18/18 11:30 03/20/18 11:29 02/18/18 11:53 Heparin Sodium (Porcine) (Heparin 5000 units/ml) 5,000 units EVERY 12 HOURS SUBQ 02/18/18 09:00 03/20/18 08:59 Lorazepam (Ativan 2mg/ml 1ml) 1 mg Q4H PRN IM For Anxiety 02/18/18 10:45 02/25/18 10:44 Magnesium Hydroxide (Mom) 30 ml DAILYPRN PRN ORAL Constipation 02/17/18 22:30 03/19/18 22:29 Mirtazapine (Remeron) 7.5 mg QHS ORAL 02/18/18 21:00 03/20/18 20:59 Naproxen (Naprosyn) 375 mg TWICE A DAY PRN ORAL For Pain 02/17/18 22:30 03/19/18 22:29 Pantoprazole (Protonix) 40 mg DAILY IVP 02/18/18 09:00 03/20/18 08:59 Sodium Chloride 1,000 ml @ 100 mls/hr Q10H IV 02/17/18 22:30 03/19/18 22:29 02/18/18 09:53 Tramadol HCl (Ultram) 50 mg BID PRN ORAL For Pain 02/17/18 22:30 02/24/18 22:29 02/18/18 00:44 Assessment/Plan Status: stable Assessment/Plan Ativan Im Haldol Im Valium po the pt refused MRI of the head the pt was provided with ro/Neha Barrientos MD Feb 18, 2018 12:54
[2018-02-18 16:00] VITALS: BP 144/78
--- NOTE | 2018-02-18 16:09 | Diagnostic Imaging Report ---
Indication: Altered mental status Technique: Only diffusion weighted images could be obtained. ADC map was also generated. Patient was unable to cooperate for any other sequences, despite sedation Comparison: Head CT 02/17/2018 Findings: No abnormal areas of restricted diffusion to suggest acute infarction. There is age-related enlargement of the ventricles and extra axial CSF spaces. No other conclusions can be reached Impression: Negative for evidence of acute infarction. Otherwise nondiagnostic exam, as only one sequence could be obtained-see above
[2018-02-18 20:00] VITALS: BP 127/85
[2018-02-19] VITALS: BP 141/79
[2018-02-19 04:00] VITALS: BP 136/83
[2018-02-19] MEDS: traMADol 50mg tab ORAL PRN ×2 (04:35→09:51)
[2018-02-19] MEDS: LORazepam Inj 2mg/ml 1ml IM PRN ×2 (04:56→09:52)
[2018-02-19 08:00] VITALS: BP 152/79
--- NOTE | 2018-02-19 08:44 | General Progress Note ---
Assessment/Plan Assessment/Plan IMPRESSION delium toxic metabolic encephalopathy back pain COPD Asthma chronic pain chronic insomnia PLAN PT eval MRI brain noted maintain meds avoid excessive pain meds will need close monitoring at home; order HH impression, plan, and exam edited and reviewed in detail care discussed with RN Subjective Allergies: Coded Allergies: PENICILLINS (Verified Allergy, 04/16/12) Subjective care noted wants to go home MRI negative psych noted Objective Last 24 Hour Vital Signs Date Time Temp Pulse Resp B/P (MAP) Pulse Ox O2 Delivery O2 Flow Rate FiO2 02/19/18 04:00 97.7 89 20 136/83 (100) 96 02/19/18 00:00 98.0 100 18 141/79 (99) 97 02/18/18 21:00 Room Air 02/18/18 20:00 98.0 109 20 127/85 (99) 94 02/18/18 16:00 96.4 108 20 144/78 (100) 96 02/18/18 12:00 97.5 90 20 136/95 (109) 96 02/18/18 09:00 Room Air Intake and Output 02/18/18 02/19/18 18:59 06:59 Intake Total 1680 ml 1000 ml Output Total 400 ml Balance 1680 ml 600 ml Intake Oral 480 ml IV Total 1200 ml 1000 ml Output Urine Total 400 ml # Voids 5 # Bowel Movements 2 Labs Test 02/17/18 15:15 02/17/18 18:35 02/18/18 07:16 White Blood Count 8.7 K/UL (4.8-10.8) 7.0 K/UL (4.8-10.8) Red Blood Count 3.88 M/UL (4.70-6.10) 3.48 M/UL (4.70-6.10) Hemoglobin 12.1 G/DL (14.2-18.0) 10.4 G/DL (14.2-18.0) Hematocrit 34.8 % (42.0-52.0) 31.0 % (42.0-52.0) Mean Corpuscular Volume 90 FL (80-99) 89 FL (80-99) Mean Corpuscular Hemoglobin 31.1 PG (27.0-31.0) 29.9 PG (27.0-31.0) Mean Corpuscular Hemoglobin Concent 34.7 G/DL (32.0-36.0) 33.6 G/DL (32.0-36.0) Red Cell Distribution Width 12.7 % (11.6-14.8) 12.6 % (11.6-14.8) Platelet Count 303 K/UL (150-450) 264 K/UL (150-450) Mean Platelet Volume 6.2 FL (6.5-10.1) 6.4 FL (6.5-10.1) Neutrophils (%) (Auto) 73.4 % (45.0-75.0) 70.4 % (45.0-75.0) Lymphocytes (%) (Auto) 11.8 % (20.0-45.0) 14.1 % (20.0-45.0) Monocytes (%) (Auto) 14.0 % (1.0-10.0) 14.7 % (1.0-10.0) Eosinophils (%) (Auto) 0.1 % (0.0-3.0) 0.2 % (0.0-3.0) Basophils (%) (Auto) 0.7 % (0.0-2.0) 0.6 % (0.0-2.0) Sodium Level 139 MMOL/L (136-145) 139 MMOL/L (136-145) Potassium Level 3.3 MMOL/L (3.5-5.1) 3.4 MMOL/L (3.5-5.1) Chloride Level 101 MMOL/L (98-107) 105 MMOL/L (98-107) Carbon Dioxide Level 25 MMOL/L (21-32) 21 MMOL/L (21-32) Anion Gap 13 mmol/L (5-15) 13 mmol/L (5-15) Blood Urea Nitrogen 18 mg/dL (7-18) 15 mg/dL (7-18) Creatinine 1.3 MG/DL (0.55-1.30) 1.1 MG/DL (0.55-1.30) Estimat Glomerular Filtration Rate mL/min (>60) mL/min (>60) Glucose Level 112 MG/DL (74-106) 92 MG/DL (74-106) Lactic Acid Level 1.20 mmol/L (0.4-2.0) Calcium Level 9.9 MG/DL (8.5-10.1) 9.4 MG/DL (8.5-10.1) Total Bilirubin 1.2 MG/DL (0.2-1.0) Direct Bilirubin 0.3 MG/DL (0.0-0.3) Aspartate Amino Transf (AST/SGOT) 25 U/L (15-37) Alanine Aminotransferase (ALT/SGPT) 13 U/L (12-78) Alkaline Phosphatase 69 U/L (46-116) Ammonia < 10 umol/L (11-32) Total Creatine Kinase 44 U/L (26-308) Creatine Kinase MB < 0.5 NG/ML (0.0-3.6) Creatine Kinase MB Relative Index 1.1 Troponin I 0.000 ng/mL (0.000-0.056) 0.017 ng/mL (0.000-0.056) Pro-B-Type Natriuretic Peptide 691 pg/mL (0-125) Total Protein 8.6 G/DL (6.4-8.2) Albumin 2.7 G/DL (3.4-5.0) Globulin 5.9 g/dL Albumin/Globulin Ratio 0.5 (1.0-2.7) Salicylates Level 0.2 ug/mL (2.8-20) Acetaminophen Level < 2 MCG/ML (10-30) Serum Alcohol < 3 mg/dL Urine Color Yellow Urine Appearance Slightly cloudy Urine pH 6 (4.5-8.0) Urine Specific [place] 1.015 (1.005-1.035) Urine Protein 2+ (NEGATIVE) Urine Glucose (UA) Negative (NEGATIVE) Urine Ketones Negative (NEGATIVE) Urine Blood 4+ (NEGATIVE) Urine Nitrite Negative (NEGATIVE) Urine Bilirubin Negative (NEGATIVE) Urine Urobilinogen 1 MG/DL (0.0-1.0) Urine Leukocyte Esterase 2+ (NEGATIVE) Urine RBC 5-10 /HPF (0 - 0) Urine WBC 30-40 /HPF (0 - 0) Urine Squamous Epithelial Cells None /LPF (NONE/OCC) Urine Bacteria Occasional /HPF (NONE) Urine Opiates Screen Negative (NEGATIVE) Urine Barbiturates Screen Negative (NEGATIVE) Phencyclidine (PCP) Screen Negative (NEGATIVE) Urine Amphetamines Screen Negative (NEGATIVE) Urine Benzodiazepines Screen Positive (NEGATIVE) Urine Cocaine Screen Negative (NEGATIVE) Urine Marijuana (THC) Screen Negative (NEGATIVE) Height (Feet): 5 Height (Inches): 7.00 Weight (Pounds): 160 Objective WDWN NAD clear breath sounds bilaterally without rhonchi or wheeze [id number] without MRG NABS nontender no HSM no CCE nonfocal Maury Grover MD Feb 19, 2018 08:44
--- NOTE | 2018-02-19 08:46 | Cardiology Report ---
APPROVED REPORT EKG Measurement Heart [id number] Sinus rhythm with occasional premature ventricular complexes Low voltage QRS Prolonged QT Abnormal ECG
--- NOTE | 2018-02-19 08:49 | Cardiology Report ---
APPROVED REPORT EKG Measurement Heart [id number] Sinus tachycardia Possible Inferior infarct, age undetermined Abnormal ECG
[2018-02-19] MEDS: Aspirin EC 81mg tab ORAL SCH (09:48)
[2018-02-19] MEDS: Pantoprazole Inj IVP SCH (09:48)
[2018-02-19] MEDS: Ciprofloxacin 500mg tab ORAL SCH (09:49)
[2018-02-19] MEDS: Heparin 5000 units/ml inj SUBQ SCH (09:53)
[2018-02-19 12:00] VITALS: BP 133/92
[2018-02-19] MEDS ORDERED: Haloperidol 5mg/ml Inj IM PRN (12:30)
--- NOTE | 2018-02-19 12:32 | General Progress Note ---
Assessment/Plan Assessment/Plan Ativan Im Haldol Im prn Valium po tid remeron 7.5mg qhs the pt was provided with ro/st Subjective Neurologic/Psychiatric: Reports: anxiety, depressed, emotional problems Allergies: Coded Allergies: PENICILLINS (Verified Allergy, 04/16/12) Subjective the pt was agitated and uncooperative the pt refuses some meds Objective Last 24 Hour Vital Signs Date Time Temp Pulse Resp B/P (MAP) Pulse Ox O2 Delivery O2 Flow Rate FiO2 02/19/18 10:21 97.9 02/19/18 09:00 Room Air 02/19/18 08:00 97.9 106 18 152/79 (103) 95 02/19/18 04:00 97.7 89 20 136/83 (100) 96 02/19/18 00:00 98.0 100 18 141/79 (99) 97 02/18/18 21:00 Room Air 02/18/18 20:00 98.0 109 20 127/85 (99) 94 02/18/18 16:00 96.4 108 20 144/78 (100) 96 Intake and Output 02/18/18 02/19/18 18:59 06:59 Intake Total 1680 ml 1000 ml Output Total 400 ml Balance 1680 ml 600 ml Intake Oral 480 ml IV Total 1200 ml 1000 ml Output Urine Total 400 ml # Voids 5 # Bowel Movements 2 Height (Feet): 5 Height (Inches): 7.00 Weight (Pounds): 160 General Appearance: WD/WN, alert, confused, agitated Neha Johnson MD Feb 19, 2018 12:32
[2018-02-19 16:00] VITALS: BP 106/72
--- NOTE | 2018-02-21 10:34 | Discharge Summary ---
Discharge Summary Discharge Summary _ DATE OF ADMISSION: 02/17/2018 DATE OF DISCHARGE: 02/19/2018 REASON FOR ADMISSION: 77 years old male with past medical history of COPD ,asthma ,hepatitis C, status post treatment, presented to emergency department due to left sided back pain. Patient also complained of R wristt pain. No known history of falls or trauma. Patient also appeared confused and lethargic for few days. Per patient's daughter , he was seen at [facility] few days ago for similar presentation, but was discharged. Upon evaluation vital signs reveal tachycardia 114, blood pressure 143/91, no fever. Laboratory workup revealed no leukocytosis, mild anemia hemoglobin 12.1 hematocrit 34.8. Potassium 3.3, otherwise stable electrolytes and renal parameters Ammonia less than 10. Troponin negative. ECG with normal sinus rhythm. Pro BNP 691. Urine toxicology screen was positive for benzodiazepine. Serum alcohol, Tylenol and salicylate levels were all negative. Urinalysis with +2 protein , +2 leukocyte esterase, pyuria and occasional bacteria. CT of the head revealed chronic age-related changes, but no acute intracranial bleeding or mass effect.. CT of the L-spine showed no acute bony trauma. Extensive degenerative changes. Possible old sacral fracture.. Pelvis CT revealed slight buckling of the anterior sacrococcygeal junction, possibly indicative of subacute injury. No definite acute bony trauma. Degenerative changes of the lumbosacral junction and bilateral hips. Incidental finding of tiny fat-containing bilateral inguinal hernias. X-ray of the right wrist revealed extensive degenerative changes, but no acute bony trauma. Chest x-ray showed no acute process. patient admitted with diagnosis of toxic metabolic encephalopathy, back pain, delirium, COPD, asthma, chronic pain, chronic insomnia, possible UTI CONSULTANTS: psychiatrist [facility] COURSE: Patient admitted to medical surgical floor and started on gentle IV hydration. MRI of the brain was negative for evidence of acute infarction. Judicious pain management was provided with avoidance of oversedation Second troponin was negative. EKG revealed sinus rhythm with occasional premature ventricular complexes P Patient initially started on antibiotic fo possible UTI. Blood and urine culture were negative. However urine specimen was taken after patient already started on oral Cipro. Patient to complete oral Cipro therapy at home for probable UTI. Pulse oximetry was stable in room air. Pulmonary toilet was on board as needed. Chest x-ray was negative. No evidence of on respiratory distress or asthma exacerbation. Renal parameters and electrolytes were closely monitored, electrolytes corrected as needed ( potassium), and nephrotoxics were avoided. Psychiatrist seen and evaluated patient. Reality orientation and supportive therapy provided. Patient started on anxiolytic medication as needed. Blood pressure stabilized, Patient was working with physical therapist. Fall precautions maintained. DVT and GI prophylaxis provided. Patient clinically improved and was stable for discharge to home with home health services. 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 DISCHARGE INSTRUCTIONS: Patient was discharged home with home health services. Follow up with primary care provider in one week. I have been assigned to dictate discharge summary for this account. I was not involved in the patient's management. Elizabeth Martel NP Feb 21, 2018 10:34
== END 2018-02-19 17:50 | disposition home health service (06) | DRG 52 ==
LOC: EMR 15:51 → 4E 16:44 → EDBEDREQ 18:17 → 4E 18:43
DX: G92 Toxic encephalopathy (principal); J44.9 Chronic obstructive pulmonary disease, unspecified; N39.0 Urinary tract infection, site not specified; G47.00 Insomnia, unspecified; G89.29 Other chronic pain; M19.90 Unspecified osteoarthritis, unspecified site; M51.36 Other intervertebral disc degeneration, lumbar region; Z88.0 Allergy status to penicillin; Z79.82 Long term (current) use of aspirin
CPT/HCPCS: 36415; 70450; 70551; 71045; 72131; 72192; 80048; 80053; 80307; 80329; 81003; 82140; 82248; 82550; 82553; 83605; 83880; 84484; 85025; 87040; 87086; 93005; 96360; 99285

== ENCOUNTER 2018-02-21 05:32 | Inpatient (IN) | payer MEDICARE, MEDICAID ==
[~2018-02-21] VITALS: Ht 167.6 cm; Wt 68.0 kg
[2018-02-21] VITALS (7 sets, daily range): BP systolic 110–150; BP diastolic 67–91
[~2018-02-21 05:32] MED LIST changes: +ASPIR 8181 MG ORAL; +CIPROFLOXACIN500 M2 ORAL; +CRESTOR10 M2 ORAL; +NAPROXEN250 MG ORAL; +NAPROXEN375 M2 ORAL; +NUCYNTA50 MG PO; +RELPAX40 MG PO
[2018-02-21] MEDS ORDERED: HYDROmorphone 1mg/ml Carpuject IVP ONE (06:15)
[2018-02-21 06:25] LABS: BASOPHILS % (AUTO) 1.7 % (0.0-2.0); EOSINOPHILS % (AUTO) 0.8 % (0.0-3.0); HEMATOCRIT 33.4 % (42.0-52.0); HEMOGLOBIN 11.1 G/DL (14.2-18.0); LYMPHOCYTES % (AUTO) 15.8 % (20.0-45.0); MEAN CORPUSCULAR VOLUME 88 FL (80-99); MONOCYTES % (AUTO) 14.5 % (1.0-10.0); NEUTROPHILS % (AUTO) 67.3 % (45.0-75.0); PLATELET COUNT 352 K/UL (150-450); RED BLOOD COUNT 3.79 M/UL (4.70-6.10); RED CELL DISTRIBUTION WIDTH 12.6 % (11.6-14.8); WHITE BLOOD COUNT 9.1 K/UL (4.8-10.8)
[2018-02-21 06:26] LABS: APPEARANCE,URINE CLEAR; BILIRUBIN, URINE NEGATIVE (NEGATIVE); GLUCOSE, URINE (UA) NEGATIVE (NEGATIVE); KETONES,URINE 1+ (NEGATIVE); LEUKOCYTE ESTERASE ,URINE 1+ (NEGATIVE); NITRITE,URINE NEGATIVE (NEGATIVE); PH,URINE 6 (4.5-8.0); PROTEIN,URINE 2+ (NEGATIVE); UROBILINOGEN,URINE 4 MG/DL (0.0-1.0)
[2018-02-21] MEDS ORDERED: Ketorolac 30mg Inj IV ONE (06:30)
--- NOTE | 2018-02-21 06:32 | Emergency Room Report ---
History of Present Illness General Chief Complaint: General Complaint Source: Patient, Family Member, Medical Record Present Illness HPI This is a 77-year-old male with multiple medical problem. He was just admitted here for altered mental status and weakness. He was just discharged home but came back today because with increasing pain and feeling dehydrated. Pain is 10 out of 10. Mostly on the left side including his wrist, hip, back. No fall. No trauma. Once he got home the pain intensified. Per son, physical therapist said that when he sat him up his heart rate jumped to 120s. When he is laying down it is over 100. Nothing made it better. Movement makes it worse. No fever chills but no nausea no vomiting. No diarrhea. Allergies: Coded Allergies: PENICILLINS (Verified Allergy, 04/16/12) Patient History Past Medical History: see triage record, old chart reviewed, HTN, other - Lymphoma Past Surgical History: other Pertinent Family History: none Social History: Denies: smoking Immunizations: other Reviewed Nursing Documentation: PMH: Agreed; PSxH: Agreed Nursing Documentation-PMH Hx Cardiac Problems: Yes Hx Hypertension: Yes Hx Asthma: Yes Hx COPD: Yes Hx Cancer: Yes - Lymphoma Hx Gastrointestinal Problems: Yes Hx Neurological Problems: No Review of Systems Eye: Denies: eye pain, blurred vision ENT: Denies: ear pain, nose congestion, throat swelling Respiratory: Denies: cough, shortness of breath Cardiovascular: Denies: chest pain, palpitations Gastrointestinal: Denies: abdominal pain, diarrhea, nausea, vomiting Musculoskeletal: Reports: back pain, joint pain, joint swelling, muscle stiffness Skin: Denies: rash Neurological: Denies: headache, numbness Endocrine: Denies: increased thirst, increased urine Hematologic/Lymphatic: Denies: easy bruising All Other Systems: negative except mentioned in HPI Physical Exam Vital Signs Date Time Temp Pulse Resp B/P (MAP) Pulse Ox O2 Delivery O2 Flow Rate FiO2 02/21/18 05:37 97.0 106 16 150/91 98 Room Air vitals with high blood pressure Sp02 EP Interpretation: reviewed, normal General Appearance: no apparent distress, alert, thin, Chronically Ill Head: normocephalic, atraumatic Eyes: bilateral eye PERRL, bilateral eye EOMI ENT: hearing grossly normal, normal pharynx Neck: full range of motion, supple, no meningismus Respiratory: chest non-tender, lungs clear, normal breath sounds Cardiovascular #1: regular rate, rhythm, no murmur Gastrointestinal: normal bowel sounds, non tender, no mass, no organomegaly, no bruit, non-distended Musculoskeletal: back normal, other - Right wrist: There is some edema to the distal radius area. It is warm to the touch. Decreased range of motion secondary to pain. Pulses normal. Neurologic: alert, oriented x3 Psychiatric: mood/affect normal Skin: warm/dry Medical Decision Making Diagnostic Impression: Primary Impression: Intractable pain Additional Impressions: Dehydration Failure to thrive in adult ER Course patient with intractable pain and dehydration. Mental status is clear. He may have polyarthritis/gout or neoplastic process to name a few. He may need alf placement for rehabilitation therapy. Will admit for further workup. I contacted Dr. Post for admission. EKG Diagnostic Results Rate: tachycardiac Rhythm: NSR ST Segments: other - Non specific ST changes Rhythm Strip Diag. Results Rhythm Strip Time: 06:32 EP Interpretation: yes Rate: 100 Rhythm: NSR, no PVC's, no ectopy Last Vital Signs Date Time Temp Pulse Resp B/P (MAP) Pulse Ox O2 Delivery O2 Flow Rate FiO2 02/21/18 05:37 97.0 106 16 150/91 98 Room Air Status: improved Disposition: ADMITTED INPATIENT Condition: Serious Referrals: Maury Grover MD (PCP) Srini Osborne MD Feb 21, 2018 06:32
[2018-02-21 06:34] LABS: ANION GAP 14 mmol/L (5-15); BLOOD UREA NITROGEN 21 mg/dL (7-18); CALCIUM 9.7 MG/DL (8.5-10.1); CARBON DIOXIDE 21 MMOL/L (21-32); CHLORIDE 101 MMOL/L (98-107); CREATININE 1.3 MG/DL (0.55-1.30); POTASSIUM 3.6 MMOL/L (3.5-5.1); SODIUM 136 MMOL/L (136-145)
[2018-02-21 06:35] LABS: COLOR,URINE YELLOW
[2018-02-21] MEDS ORDERED: Milk of Magnesia 30ml Ud ORAL PRN (09:00)
[2018-02-21] MEDS ORDERED: HYDROmorphone 1mg/ml Carpuject IVP PRN (09:07)
--- NOTE | 2018-02-21 09:11 | History & Physical ---
History and Physical History & Physicial History & Physicial 77-year-old male presents with worsening pain and confusion with recent discharge from the hospital. patient could not be cared for at home due to pain and discomfort. He's been complaining of left-sided back pain for the last few days, and now back pain. Also patient has been increasingly confused and more lethargic. Daughter . He also notes left-sided hip pain and right wrist pain. Patient on chronic pain meds and followed by pain MD. Patient denies alcohol or drug use. Denies headache or head trauma. Denies fevers chills. No other aggravating relieving factors. no recent travel. excessive stress Allergies: PENICILLINS (Verified Allergy, 04/16/12) Past Medical History: asthma, COPD, pulmonary hypertension, anxiety, insomnia, possible early dementia, ho lymphoma right eye Past Surgical History: none Pertinent Family History: non-contributory to the above Laboratory Tests Test 02/21/18 06:00 White Blood Count 9.1 K/UL (4.8-10.8) Red Blood Count 3.79 M/UL (4.70-6.10) L Hemoglobin 11.1 G/DL (14.2-18.0) L Hematocrit 33.4 % (42.0-52.0) L Mean Corpuscular Volume 88 FL (80-99) Mean Corpuscular Hemoglobin 29.4 PG (27.0-31.0) Mean Corpuscular Hemoglobin Concent 33.4 G/DL (32.0-36.0) Red Cell Distribution Width 12.6 % (11.6-14.8) Platelet Count 352 K/UL (150-450) Mean Platelet Volume 6.7 FL (6.5-10.1) Neutrophils (%) (Auto) 67.3 % (45.0-75.0) Lymphocytes (%) (Auto) 15.8 % (20.0-45.0) L Monocytes (%) (Auto) 14.5 % (1.0-10.0) H Eosinophils (%) (Auto) 0.8 % (0.0-3.0) Basophils (%) (Auto) 1.7 % (0.0-2.0) Erythrocyte Sedimentation Rate 70 MM/HR (0-20) H Urine Color Yellow Urine Appearance Clear Urine pH 6 (4.5-8.0) Urine Specific [place] 1.025 (1.005-1.035) Urine Protein 2+ (NEGATIVE) H Urine Glucose (UA) Negative (NEGATIVE) Urine Ketones 1+ (NEGATIVE) H Urine Blood 3+ (NEGATIVE) H Urine Nitrite Negative (NEGATIVE) Urine Bilirubin Negative (NEGATIVE) Urine Urobilinogen 4 MG/DL (0.0-1.0) H Urine Leukocyte Esterase 1+ (NEGATIVE) H Urine RBC 5-10 /HPF (0 - 0) H Urine WBC 0-2 /HPF (0 - 0) Urine Squamous Epithelial Cells None /LPF (NONE/OCC) Urine Bacteria None /HPF (NONE) Sodium Level 136 MMOL/L (136-145) Potassium Level 3.6 MMOL/L (3.5-5.1) Chloride Level 101 MMOL/L (98-107) Carbon Dioxide Level 21 MMOL/L (21-32) Anion Gap 14 mmol/L (5-15) Blood Urea Nitrogen 21 mg/dL (7-18) H Creatinine 1.3 MG/DL (0.55-1.30) Estimat Glomerular Filtration Rate mL/min (>60) Glucose Level 98 MG/DL (74-106) Uric Acid 5.8 MG/DL (2.6-7.2) Calcium Level 9.7 MG/DL (8.5-10.1) C-Reactive Protein, Quantitative 26.2 mg/dL (0.00-0.90) H Social History: Denies: smoking, alcohol use, drug use; retired; cares for grandchildren; Reviewed of systems: failure to thrive; all 10 points reviewed as above; some sob and cough Physical WDWN NAD clear breath sounds bilaterally without rhonchi or wheeze [id number] without MRG NABS nontender no HSM no CCE nonfocal unsteady and some mild confusion IMPRESSION delium toxic metabolic encephalopathy back pain/ neck pain dehydration COPD Asthma chronic pain chronic insomnia PLAN PT eval Ct neck and spine resume meds hold pain meds pain management evaluation consider short term snf will need close monitoring at home impression, plan, and exam edited and reviewed in detail care discussed with Maury Tristan MD Feb 21, 2018 09:11
[2018-02-21] MEDS: Aspirin Baby 81mg ORAL SCH (09:42)
[2018-02-21] MEDS ORDERED: traMADol 50mg tab ORAL PRN (10:30)
[2018-02-21] MEDS ORDERED: Ciprofloxacin 500mg tab ORAL SCH (11:30)
[2018-02-21] MEDS ORDERED: ALPRAZolam 0.25mg tab ORAL SCH (13:00)
[2018-02-21] MEDS: Naproxen 500mg tab ORAL SCH (17:43)
[2018-02-21] MEDS: Ciprofloxacin 500mg tab ORAL SCH (20:19)
[2018-02-21] MEDS: HYDROmorphone 1mg/ml Carpuject IVP PRN (20:20)
[2018-02-21] MEDS: Zolpidem 5mg tab ORAL PRN (20:20)
[2018-02-21] MEDS: Atorvastatin 20mg tab ORAL SCH (20:20)
[2018-02-21] MEDS: Heparin 5000 units/ml inj SUBQ SCH (20:24)
[2018-02-22] VITALS: BP 95/52
[2018-02-22] MEDS: HYDROmorphone 1mg/ml Carpuject IVP PRN ×3 (03:14→17:53)
[2018-02-22] MEDS: ALPRAZolam 0.25mg tab ORAL PRN ×2 (03:14→08:01)
[2018-02-22 03:26] VITALS: BP 108/63
[2018-02-22 08:00] VITALS: BP 115/60
[2018-02-22] MEDS: Heparin 5000 units/ml inj SUBQ SCH ×2 (09:35→20:36)
[2018-02-22] MEDS: Aspirin Baby 81mg ORAL SCH (09:35)
[2018-02-22] MEDS: Naproxen 500mg tab ORAL SCH ×2 (09:35→17:53)
[2018-02-22] MEDS: Ciprofloxacin 500mg tab ORAL SCH ×2 (09:35→20:34)
--- NOTE | 2018-02-22 09:56 | Pulmonology Progress Note ---
Assessment/Plan Assessment/Plan Pulmonary Progress Note Patient is a 77-year-old male presents with worsening pain and confusion with recent discharge from the hospital. patient could not be cared for at home due to pain and discomfort. He's been complaining of left-sided back pain for the last few days, and now back pain. Also patient has been increasingly confused and more lethargic. Daughter . He also notes left-sided hip pain and right wrist pain. Patient on chronic pain meds and followed by pain MD. Patient denies alcohol or drug use. Denies headache or head trauma. Denies fevers chills. No other aggravating relieving factors. no recent travel. excessive stress No overnight events, labs noted Allergies: PENICILLINS (Verified Allergy, 04/16/12) Past Medical History: asthma, COPD, pulmonary hypertension, anxiety, insomnia, possible early dementia, ho lymphoma right eye Past Surgical History: none Pertinent Family History: non-contributory to the above Laboratory Tests Test 02/21/18 06:00 White Blood Count 9.1 K/UL (4.8-10.8) Red Blood Count 3.79 M/UL (4.70-6.10) L Hemoglobin 11.1 G/DL (14.2-18.0) L Hematocrit 33.4 % (42.0-52.0) L Mean Corpuscular Volume 88 FL (80-99) Mean Corpuscular Hemoglobin 29.4 PG (27.0-31.0) Mean Corpuscular Hemoglobin Concent 33.4 G/DL (32.0-36.0) Red Cell Distribution Width 12.6 % (11.6-14.8) Platelet Count 352 K/UL (150-450) Mean Platelet Volume 6.7 FL (6.5-10.1) Neutrophils (%) (Auto) 67.3 % (45.0-75.0) Lymphocytes (%) (Auto) 15.8 % (20.0-45.0) L Monocytes (%) (Auto) 14.5 % (1.0-10.0) H Eosinophils (%) (Auto) 0.8 % (0.0-3.0) Basophils (%) (Auto) 1.7 % (0.0-2.0) Erythrocyte Sedimentation Rate 70 MM/HR (0-20) H Urine Color Yellow Urine Appearance Clear Urine pH 6 (4.5-8.0) Urine Specific [place] 1.025 (1.005-1.035) Urine Protein 2+ (NEGATIVE) H Urine Glucose (UA) Negative (NEGATIVE) Urine Ketones 1+ (NEGATIVE) H Urine Blood 3+ (NEGATIVE) H Urine Nitrite Negative (NEGATIVE) Urine Bilirubin Negative (NEGATIVE) Urine Urobilinogen 4 MG/DL (0.0-1.0) H Urine Leukocyte Esterase 1+ (NEGATIVE) H Urine RBC 5-10 /HPF (0 - 0) H Urine WBC 0-2 /HPF (0 - 0) Urine Squamous Epithelial Cells None /LPF (NONE/OCC) Urine Bacteria None /HPF (NONE) Sodium Level 136 MMOL/L (136-145) Potassium Level 3.6 MMOL/L (3.5-5.1) Chloride Level 101 MMOL/L (98-107) Carbon Dioxide Level 21 MMOL/L (21-32) Anion Gap 14 mmol/L (5-15) Blood Urea Nitrogen 21 mg/dL (7-18) H Creatinine 1.3 MG/DL (0.55-1.30) Estimat Glomerular Filtration Rate mL/min (>60) Glucose Level 98 MG/DL (74-106) Uric Acid 5.8 MG/DL (2.6-7.2) Calcium Level 9.7 MG/DL (8.5-10.1) C-Reactive Protein, Quantitative 26.2 mg/dL (0.00-0.90) H Social History: Denies: smoking, alcohol use, drug use; retired; cares for grandchildren; Reviewed of systems: failure to thrive; all 10 points reviewed as above; some sob and cough Vital signs noted Physical WDWN NAD clear breath sounds bilaterally without rhonchi or wheeze [id number] without MRG NABS nontender no HSM no CCE nonfocal unsteady and some mild confusion IMPRESSION delium toxic metabolic encephalopathy back pain/ neck pain dehydration COPD Asthma chronic pain chronic insomnia PLAN PT eval Ct neck and spine resume meds hold pain meds pain management evaluation consider short term snf will need close monitoring at home impression, plan, and exam edited and reviewed in detail care discussed with RN Subjective ROS Limited/Unobtainable: No Allergies: Coded Allergies: PENICILLINS (Verified Allergy, 04/16/12) Objective Last 24 Hour Vital Signs Date Time Temp Pulse Resp B/P (MAP) Pulse Ox O2 Delivery O2 Flow Rate FiO2 02/22/18 08:00 96.8 111 18 115/60 (78) 93 02/22/18 03:26 97.9 101 20 108/63 (78) 96 02/22/18 00:00 97.5 100 20 95/52 (66) 98 02/21/18 21:49 Room Air 02/21/18 20:50 98.7 02/21/18 20:31 98.7 99 20 130/67 (88) 98 02/21/18 16:00 98.0 113 18 136/87 (103) 94 02/21/18 14:35 Room Air 02/21/18 12:00 98.2 95 17 138/67 (90) 95 Intake and Output 02/21/18 02/22/18 19:00 07:00 Intake Total 800 ml 1000 ml Output Total 400 ml Balance 800 ml 600 ml IV Total 800 ml 1000 ml Output Urine Total 400 ml Microbiology Date/Time Source Procedure Growth Status 02/21/18 07:25 Rectum Received Current Medications Medications (Trade) Dose Ordered Sig/Kaylie Route PRN Reason Start Time Stop Time Status Last Admin Dose Admin Acetaminophen (Tylenol) 650 mg Q4H PRN ORAL Mild Pain/Temp > 100.5 02/21/18 09:00 03/23/18 08:59 Al Hydroxide/Mg Hydroxide (Mylanta) 30 ml Q4H PRN ORAL Abdominal cramps 02/21/18 09:06 03/23/18 09:05 Alprazolam (Xanax) 0.25 mg THREE TIMES A DAY PRN ORAL For Anxiety 02/21/18 09:17 02/28/18 09:16 02/22/18 08:01 Aspirin (ASA) 81 mg DAILY ORAL 02/21/18 09:00 03/23/18 08:59 02/21/18 09:42 Atorvastatin Calcium (Lipitor) 40 mg BEDTIME ORAL 02/21/18 21:00 03/23/18 20:59 02/21/18 20:20 Ciprofloxacin (Cipro 500mg tab) 500 mg EVERY 12 HOURS ORAL 02/21/18 21:00 02/28/18 20:59 02/21/18 20:19 Heparin Sodium (Porcine) (Heparin 5000 units/ml) 5,000 units EVERY 12 HOURS SUBQ 02/21/18 21:00 03/23/18 20:59 02/21/18 20:24 Hydromorphone HCl (Dilaudid) 1 mg Q3H PRN IVP Moderate Pain (Pain Scale 4-6) 02/21/18 10:45 02/28/18 09:06 02/22/18 03:14 Hydromorphone HCl (Dilaudid) 2 mg Q3H PRN IVP Severe Pain (Pain Scale 7-10) 02/21/18 09:07 02/28/18 09:06 02/21/18 09:43 Magnesium Hydroxide (Mom) 30 ml DAILYPRN PRN ORAL Constipation 02/21/18 09:00 03/23/18 08:59 Naproxen (Naprosyn) 250 mg BID ORAL 02/21/18 18:00 03/23/18 17:59 02/21/18 17:43 Non-Formulary Medication (Non-Formulary Med) 1 ea DAILY ORAL 02/22/18 09:00 03/24/18 08:59 UNV Non-Formulary Medication (Non-Formulary Med) 1 ea DAILY ORAL 02/22/18 09:00 03/24/18 08:59 UNV Non-Formulary Medication (Non-Formulary Med) 1 ea DAILY ORAL 02/22/18 09:00 03/24/18 08:59 UNV Pantoprazole (Protonix) 40 mg DAILY ORAL 02/21/18 09:00 03/23/18 08:59 02/21/18 09:42 Sodium Chloride 1,000 ml @ 100 mls/hr Q10H IV 02/21/18 10:00 03/23/18 09:59 02/22/18 03:15 Tramadol HCl (Ultram) 50 mg Q12H PRN ORAL Moderate Pain (Pain Scale 4-6) 02/21/18 10:30 02/28/18 10:29 Zolpidem Tartrate (Ambien) 5 mg HSPRN PRN ORAL Insomnia 02/21/18 21:00 02/28/18 20:59 02/21/18 20:20 Oliver Chaidez MD Feb 22, 2018 09:56
[2018-02-22 12:00] VITALS: BP 141/67
--- NOTE | 2018-02-22 14:33 | Diagnostic Imaging Report ---
Indication: Neck pain Technique: Spiral acquisitions obtained through the cervical spine. No IV contrast utilized. Multiplanar reconstructions were generated. Total dose length product 330.19 mGycm. CTDIvol(s) 15.06 mGy. Dose reduction achieved using automated exposure control. Comparison: none Findings: A cerclage wire is seen in the left mandibular angle. There is very slight anterior offset of C4 on C5, very slight posterior offset of C5 on C6, slight anterior offset of C7 on T1. Otherwise normal bony alignment. There is apparent complete ankylosis of the C6-7 disc. There is partial ankylosis of the C5-6 disc as well. No acute fractures. No dislocations. There is narrowing and degenerative change of the anterior atlantoaxial joint, as well as slight thickening of the atlantoaxial ligament. At C2-3, the disc space is preserved. There is bilateral facet arthrosis. No significant disc bulge or protrusion. There is mild bilateral neural foraminal stenosis. At C3-4, there is mild right paracentral disc protrusion, disc protruding approximately 3 mm beyond the posterior margin of the vertebral body.. This may impinge slightly on the right side of the spinal cord. No spinal stenosis, however. There is moderate to severe neural foraminal stenosis bilaterally. There is bilateral facet arthrosis. The disc space is preserved. At C4-5, there is moderate to severe degenerative disc narrowing. No significant disc bulge or protrusion. No spinal stenosis. There is moderate to severe right, mild left neural foraminal stenosis. There is bilateral facet arthrosis. At C5-6, as mentioned above, there is ankylosis of the disc. Uncertain as to whether this is secondary to arthropathy or postsurgical. There is moderate to severe bilateral neural foraminal stenosis. Large posterior central osteophyte results in borderline narrowing of the spinal canal. There is bilateral facet arthrosis At C6-7, as mentioned above, there is complete ankylosis of the disc. This may be due to prior surgery or acquired secondary to arthropathy. There is mild broad-based posterior disc protrusion, but this does not significantly impinge upon the spinal canal. There is moderate to severe neural foraminal stenosis bilaterally. At C7-T1, there is severe degenerative disc narrowing with near complete obliteration of the disc space. There is bilateral facet arthrosis. No significant disc bulge or protrusion. No spinal stenosis or neural foraminal stenosis. Degenerative disc disease and facet disease continues into the upper thoracic spine as well. The upper aerodigestive tract is unremarkable. There is carotid artery atherosclerosis incidentally noted. Some secretions are seen in the tracheal wall. The upper lungs are clear Impression: No acute bony trauma Evidence of ankylosis of the C5-6 and C6-7 discs. Uncertain as to whether this is due to prior surgery or degenerative disc arthropathy. Correlate with surgical history Other degenerative changes, as detailed above on a level by level basis Evidence of prior left mandibular surgery The CT scanner at [facility] is accredited by the [employer] and the scans are performed using protocols designed to limit radiation exposure to as low as reasonably achievable to attain images of sufficient resolution adequate for diagnostic evaluation.
--- NOTE | 2018-02-22 14:50 | Diagnostic Imaging Report ---
Indications: Back pain Technique: Spiral acquisitions obtained through the lumbar spine. Multiplanar reconstructions were generated. No IV contrast utilized. Total dose length product 545.97 mGycm. CTDIvol(s) 19.21 mGy. Dose reduction achieved using automated exposure control Comparison: 02/17/2018 Findings: Bony alignment is normal. Vertebral body heights are preserved. There is multilevel disc degeneration. No acute fractures. No dislocations. There are slight buckle and cortical thickening of the anterior central sacrum could represent an old fracture. At T12-L1, there is mild degenerative disc narrowing and vacuum formation. No significant disc bulge or protrusion, spinal stenosis, or neural foraminal stenosis. At L1-2, there is severe degenerative disc narrowing again demonstrated. There is mild bilateral neural foraminal stenosis. No significant disc bulge or protrusion or spinal stenosis. There is mild bilateral facet arthrosis. At L2-3, there is severe degenerative disc narrowing with vacuum formation. There is mild to moderate spinal stenosis, predominantly due to ligamentum flavum hypertrophy. This is more striking on the previous and on the current exam. Again demonstrated is mild to moderate neural foraminal stenosis. Bilateral facet arthrosis is again demonstrated. At L3-4, there is severe degenerative disc narrowing with vacuum formation. There is considerable bilateral facet arthrosis. Short pedicles, facet and ligamentum flavum hypertrophy, as well as minimal circumferential annular bulge, results in moderate stenosis of the spinal canal at this level. The neural foramina are preserved. Enlk-ex-paau apposition of the spinous processes is unchanged. At L4-5, there is severe degenerative disc narrowing with vacuum formation. At least moderate spinal stenosis results from circumferential annular bulge, posterior osteophyte formation, facet and ligamentum flavum hypertrophy. There is mild right and moderate left neural foraminal no cysts. There is bilateral facet arthrosis. There is [id number]-[id number] apposition of the spinous processes. At L5-S1, there is severe degenerative narrowing of the disc with vacuum formation. There is bilateral severe facet arthrosis, worst on the left. Posterior disc bulge/osteophyte complex may protrude and impinge the right lateral recess. The posterior osteophytes, ligamentum flavum hypertrophy, and facet hypertrophy also result in moderate narrowing of the spinal canal. There is mild to moderate right, moderate left neural foraminal narrowing. The included extraspinal soft tissues are unremarkable. When compared to the prior exam, findings are unchanged Impression: No significant change from previous study of 02/17/2018 Extensive multilevel degenerative changes, as detailed on a level by level basis above No acute bony trauma Possible old central sacral fracture, previously described The CT scanner at [facility] is accredited by the [employer] and the scans are performed using protocols designed to limit radiation exposure to as low as reasonably achievable to attain images of sufficient resolution adequate for diagnostic evaluation.
--- NOTE | 2018-02-22 15:00 | Diagnostic Imaging Report ---
Indication: ] Hand pain Technique: 3 views right hand Comparison: Wrist radiograph dated 02/17/2018, hand, although equivocally visible on 02/17/2018 radiograph. Radiograph dated 05/12/2016 Findings: Again demonstrated is an old healed fracture deformity of the first metacarpal. Again demonstrated is severe degenerative arthropathy and degenerative remodeling of the distal radial ulnar joint. Separate osseous fragment at the tip of the ulna is well corticated, evident previously, could represent a dystrophic ossification versus old ununited ulnar styloid fracture. Previously demonstrated similar osseous fragment located more medially is not as evident currently. No acute fractures. No dislocations. There is degenerative joint space narrowing of the third and fifth metacarpophalangeal joints, and of the fifth distal interphalangeal joint. 2 small radiopaque foreign bodies project in the soft tissues of the fourth digit. These are also evident previously. There are vascular calcifications. Impression: No acute bony trauma Prior traumatic and degenerative changes, as described above, also evident on 05/12/2016 exam Radiopaque foreign bodies in the distal fourth digit, also described previously.
[2018-02-22 16:00] VITALS: BP 99/64
[2018-02-22 20:00] VITALS: BP 145/89
[2018-02-22] MEDS: LINZESS 145 MCG ORAL SCH (20:33)
[2018-02-22] MEDS: NUCYNTA 50 MG ORAL SCH (20:33)
[2018-02-22] MEDS: Zolpidem 5mg tab ORAL PRN (20:34)
[2018-02-22] MEDS: Atorvastatin 20mg tab ORAL SCH (20:34)
[2018-02-22] MEDS ORDERED: ELETRIPTAN 20 MG ORAL PRN (21:45)
[2018-02-23] VITALS: BP 134/91
[2018-02-23] MEDS: HYDROmorphone 1mg/ml Carpuject IVP PRN (00:34)
[2018-02-23 04:00] VITALS: BP 136/85
[2018-02-23 08:00] VITALS: BP 150/95
[2018-02-23] MEDS: Ciprofloxacin 500mg tab ORAL SCH (09:43)
[2018-02-23] MEDS: Aspirin Baby 81mg ORAL SCH (09:43)
[2018-02-23] MEDS: LINZESS 145 MCG ORAL SCH (09:44)
[2018-02-23] MEDS: Naproxen 500mg tab ORAL SCH (09:44)
[2018-02-23] MEDS: NUCYNTA 50 MG ORAL SCH (09:44)
[2018-02-23] MEDS: Heparin 5000 units/ml inj SUBQ SCH (09:46)
--- NOTE | 2018-02-23 09:55 | General Progress Note ---
Assessment/Plan Assessment/Plan IMPRESSION delium toxic metabolic encephalopathy back pain/ neck pain dehydration COPD Asthma chronic pain chronic insomnia PLAN Ct neck and spine reviewed resume meds hold pain meds pain management - avoid excessive use patient does not want snf and would like to go home overall much improved message left for Jen shah impression, plan, and exam edited and reviewed in detail care discussed with RN Subjective Allergies: Coded Allergies: PENICILLINS (Verified Allergy, 04/16/12) Subjective much improved back to baseline LOC wants to go home Objective Last 24 Hour Vital Signs Date Time Temp Pulse Resp B/P (MAP) Pulse Ox O2 Delivery O2 Flow Rate FiO2 02/23/18 04:00 98.3 103 18 136/85 (102) 95 02/23/18 00:00 97.8 101 18 134/91 (105) 96 02/22/18 21:00 Room Air 02/22/18 20:00 98.3 104 19 145/89 (107) 96 02/22/18 16:00 97.3 94 20 99/64 (76) 95 02/22/18 12:00 97.5 102 20 141/67 (91) 97 Intake and Output 02/22/18 02/23/18 19:00 07:00 Intake Total 1658 ml 600 ml Balance 1658 ml 600 ml Intake Oral 558 ml IV Total 1100 ml 600 ml # Voids 3 5 Height (Feet): 5 Height (Inches): 6.00 Weight (Pounds): 150 Objective WDWN NAD clear breath sounds bilaterally without rhonchi or wheeze [id number] without MRG NABS nontender no HSM no CCE nonfocal fully alert and oriented Maury Grover MD Feb 23, 2018 09:55
[2018-02-23 12:00] VITALS: BP 162/94
--- NOTE | 2018-02-24 10:45 | Discharge Summary ---
Discharge Summary Discharge Summary _ DATE OF ADMISSION: 02/21/2018 DATE OF DISCHARGE 02/23/2018 REASON FOR ADMISSION: 77 years old male with past medical history of hypertension ,COPD/asthma , lymphoma, recently discharged home ,but came back due to increased pain and feeling dehydrated. Apparently while working with physical therapist at home, his heart rate dropped to 120. Vital signs reveal tachycardia. EKG revealed sinus tachycardia ,no acute ischemic changes, no PVC ,no ectopy. Patient admitted with diagnoses of dehydration , delirium, toxic metabolic encephalopathy , COPD/asthma. chronic pain .chronic insomnia. HOSPITAL COURSE: Patient admitted to medical surgical floor. CT of the C-spine revealed no acute bony trauma. Evidence of ankylosis of the C5-6 and C6-7 disks. Other degenerative changes noted. CT of L-spine revealed extensive multilevel degenerative changes , but no acute bony trauma. Possible old central sacral fracture, X-ray of the right wrist showed no acute bony trauma. Pain management was addressed with avoidance of excessive use. Pain eventually was controlled. DVT prophylaxis provided. Patient received intravenous hydration. Renal parameters and electrolytes were closely monitored. Mental status was closely monitored, and improved with judicious use of analgesics and controlled pain. Patient declined short-term placement to residential facility and expressed desire to go home. Pulse oximetry was stable on room air, no evidence of COPD/asthma exacerbation. Bowel regimen instituted. Other home medications resumed. Patient was working with physical and occupational therapists. Fall precautions maintained. Patient clinically improved and was ready for discharge home with home health services FINAL DIAGNOSES: Back and neck pain secondary to extensive multilevel degenerative disc disease Toxic metabolic encephalopathy Delirium Dehydration COPD/asthma Chronic pain Chronic insomnia DISCHARGE MEDICATIONS: See Medication Reconciliation list. DISCHARGE INSTRUCTIONS: Patient was discharged home with home health services. Follow up with primary care provider in one week. I have been assigned to dictate discharge summary for this account. I was not involved in the patient's management. Elizabeth Martel NP Feb 24, 2018 10:45
--- NOTE | 2018-02-25 14:08 | Cardiology Report ---
APPROVED REPORT EKG Measurement Heart [id number] Sinus tachycardia with premature supraventricular complexes Nonspecific ST and T wave abnormality Abnormal ECG
== END 2018-02-23 13:00 | disposition home health service (06) | DRG 347 ==
LOC: EMR 05:40 → EDBEDREQ 06:40 → 4E 06:52 → EDBEDREQ 07:44 → 4E 18:48
DX: M50.30 Other cervical disc degeneration, unspecified cervical region (principal); G92 Toxic encephalopathy; E86.0 Dehydration; I27.20 Pulmonary hypertension, unspecified; M51.36 Other intervertebral disc degeneration, lumbar region; Z88.0 Allergy status to penicillin; I10 Essential (primary) hypertension; J44.9 Chronic obstructive pulmonary disease, unspecified; Z85.72 Personal history of non-Hodgkin lymphomas; R41.0 Disorientation, unspecified; G47.00 Insomnia, unspecified; R00.0 Tachycardia, unspecified; M25.552 Pain in left hip; M25.532 Pain in left wrist; F41.9 Anxiety disorder, unspecified; R62.7 Adult failure to thrive
CPT/HCPCS: 36415; 72125; 72131; 80048; 81001; 84550; 85025; 85651; 86140; 87081; 93005; 96361; 96374; 96375; 99285; J2405

== ENCOUNTER 2018-07-17 10:20 | Day surgery (SDC) | payer MEDICARE, MEDICAID ==
[~2018-07-17] VITALS: Ht 167.6 cm; Wt 70.3 kg
--- NOTE | 2018-07-17 07:24 | Pre-Procedure Note/Attestation ---
Pre-Procedure Note/Attestation Complete Prior to Procedure Planned Procedure: left - Removal of cataract and placement of intraocular lens , left eye Procedure Narrative: Removal of cataract and placement of intraocular lens, left eye Indications for Procedure Pre-Operative Diagnosis: Cataract, combined, left eye Attestation I attest that I discussed the nature of the procedure; its benefits; risks and complications; and alternatives (and the risks and benefits of such alternatives ), prior to the procedure, with the patient (or the patient's legal construction representative). I attest that, if there was a reasonable possibility of needing a blood transfusion, the patient (or the patient's legal construction representative) was given the [place] Department [employer] standardized written summary, pursuant to the [place] Blood Safety Act ([place] Health and Safety Code # 1645, as amended). I attest that I re-evaluated the patient just prior to the surgery and that there has been no change in the patient's H&P, except as documented below: Jim Naidu MD Jul 17, 2018 07:24
[~2018-07-17 10:20] MED LIST changes: +Midazolam 2mg/2ml Inj ONE
[2018-07-17] MEDS ORDERED: Phenylephrine 10% Opth Soln 5ml ONE (10:47)
[2018-07-17] MEDS ORDERED: Cyclopentolate 1% Opth Sol 2ml ONE (10:47)
[2018-07-17] MEDS ORDERED: Tobradex Opth Susp 2.5ml ONE (10:47)
[2018-07-17] MEDS ORDERED: Vigamox Opth Soln 3ml ONE (10:47)
[2018-07-17] MEDS ORDERED: Tropicamide 1% Opth 15ml Soln ONE (10:47)
[2018-07-17] MEDS ORDERED: Akten 3.5% 1ml Btl ONE (10:47)
[2018-07-17] MEDS: Tobradex Opth Susp 2.5ml LEFT EYE SCH ×3 (10:56→11:12)
[2018-07-17] MEDS: Vigamox Opth Soln 3ml LEFT EYE SCH ×3 (10:56→11:12)
[2018-07-17] MEDS: Cyclopentolate 1% Opth Sol 2ml LEFT EYE SCH ×3 (10:56→11:12)
[2018-07-17] MEDS: Akten 3.5% 1ml Btl LEFT EYE SCH ×3 (10:57→11:22)
[2018-07-17] MEDS: Phenylephrine 10% Opth Soln 5ml LEFT EYE SCH ×3 (10:57→11:12)
[2018-07-17] MEDS: Tropicamide 1% Opth 15ml Soln LEFT EYE SCH ×3 (10:57→11:13)
[2018-07-17 11:06] VITALS: BP 134/72
[2018-07-17] MEDS ORDERED: BREO ELLIPTA 11 EACH IH (11:29)
[2018-07-17] MEDS ORDERED: VENTOLIN HFA18 GM INH (11:29)
[2018-07-17] MEDS ORDERED: Hydromorphone 0.5mg/0.5ml inj IVP PRN (12:15)
[2018-07-17] MEDS ORDERED: HYDROcodone/Acetamin 7.5/325 tab ORAL PRN (12:15)
[2018-07-17] MEDS ORDERED: LR 1000ml 1,000 ML IVLG SCH (12:15)
[2018-07-17] MEDS ORDERED: Metoclopramide 10mg/2ml Inj IVP PRN (12:15)
[2018-07-17] MEDS ORDERED: Meperidine 50mg/ml Inj(FOR RIGORS ONLY) IVP PRN (12:15)
[2018-07-17] MEDS ORDERED: Ketorolac 30mg Inj IV PRN ×2 (12:15)
[2018-07-17] MEDS ORDERED: Labetalol 5mg/ml 20ml vial IV PRN (12:15)
[2018-07-17] MEDS ORDERED: Midazolam 2mg/2ml Inj IVP PRN (12:15)
[2018-07-17] MEDS ORDERED: oxyCODONE HCL/Acetaminophen 5/325mg ORAL PRN (12:15)
[2018-07-17] MEDS ORDERED: DiphenhydrAMINE 50mg/ml Inj IVP PRN (12:15)
[2018-07-17] MEDS ORDERED: fentaNYL 100 mcg/2 mL IV PRN (12:15)
[2018-07-17] MEDS ORDERED: LORazepam Inj 2mg/ml 1ml IV PRN (12:15)
[2018-07-17] MEDS ORDERED: Atropine Sulfate 0.4mg/ml inj IVP PRN (12:15)
[2018-07-17] MEDS ORDERED: HYDROcodone/Acetamin 5/325 tab ORAL PRN (12:15)
--- NOTE | 2018-07-17 12:16 | Anethesia Preoperative Eval ---
Anesthesia Pre-op PMH/ROS General Date of Evaluation: Jul 17, 2018 Time of Evaluation: 12:44 Anesthesiologist: Stas ASA Score: ASA 3 Mallampati Score Class I : Soft palate, uvula, fauces, pillars visible Class II: Soft palate, uvula, fauces visible Class III: Soft palate, base of uvula visible Class IV: Only hard plate visible Mallampati Classification: Class II Surgeon: Evangelista Diagnosis: Cataract OS Surgical Procedure: Cat Ext IOL OS Anesthesia History: none Family History: no anesthesia problems Allergies: Coded Allergies: PENICILLINS (Verified Allergy, Severe, RASHES, 07/17/18) Medications: see eMAR Patient NPO?: Yes Past Medical History Cardiovascular: Reports: HTN, other - HL Pulmonary: Reports: asthma, COPD Gastrointestinal/Genitourinary: Reports: GERD - Hiatal Hernia, other - Irritable Bowel Neurologic/Psychiatric: Reports: other - Migranes HEENT: Reports: cataract (L), other - Lymphoma OS Hematology/Immune: Reports: other - Lymphoma, Hep C PSxH Narrative: Bilateral Inguinal Hernia Repair Anesthesia Pre-op Phys. Exam Physician Exam Last Vital Signs Date Time Temp Pulse Resp B/P (MAP) Pulse Ox O2 Delivery O2 Flow Rate FiO2 07/17/18 11:14 Room Air 07/17/18 11:06 97.9 92 18 134/72 96 Constitutional: NAD Neurologic: CN 2-12 intact Cardiovascular: RRR Respiratory: CTA Gastrointestinal: S/NT/ND Airway Exam Mallampati Score: Class II MO: full ROM: limited Teeth: missing, intact Anesthesia Pre-op A/P Risk Assessment & Plan Assessment: ASA 3 Plan: GA Status Change Before Surgery: No Ace Mcclelland MD Jul 17, 2018 12:16
--- NOTE | 2018-07-17 12:24 | Immediate Post-Op Evaluation ---
Immediate Post-Op Evalulation Immediate Post-Op Evalulation Procedure: Cat Ext IOL OS Date of Evaluation: Jul 17, 2018 Time of Evaluation: 13:52 IV Fluids: 600 LR Blood Products: 0 Estimated Blood Loss: 1 Urinary Output: 0 Blood Pressure Systolic: 140 Blood Pressure Diastolic: 102 Pulse Rate: 97 Respiratory Rate: 16 O2 Sat by Pulse Oximetry: 99 Temperature (Fahrenheit): 98.9 Pain Score (1-10): 1 Nausea: No Vomiting: No Complications 0 Patient Status: awake, reacts, patent, none Hydration Status: adequate Ace Mcclelland MD Jul 17, 2018 12:24
--- NOTE | 2018-07-17 12:25 | 48 Hour Post Anesthesia Eval ---
Post Anesthesia Evaluation Procedure: Cat Ext IOL OS Date of Evaluation: Jul 17, 2018 Time of Evaluation: 16:12 Blood Pressure Systolic: 151 0: 101 Pulse Rate: 98 Respiratory Rate: 18 Temperature (Fahrenheit): 98.6 O2 Sat by Pulse Oximetry: 99 Airway: patent Nausea: No Vomiting: No Pain Intensity: 1 Hydration Status: adequate Cardiopulmonary Status: Stable Mental Status/LOC: patient returned to baseline Follow-up Care/Observations: 0 Post-Anesthesia Complications: 0 Follow-up care needed: ready to discharge Ace Mcclelland MD Jul 17, 2018 12:25
[2018-07-17] MEDS ORDERED: EPINEPHrine 1mg/1ml Amp ONE (12:44)
[2018-07-17] MEDS ORDERED: Lidocaine 4% Amp ONE (12:44)
[2018-07-17] MEDS ORDERED: Fluorescein Strips ONE (12:45)
[2018-07-17] MEDS ORDERED: BSS 500ml btl ONE (12:45)
[2018-07-17] MEDS ORDERED: Timolol 0.5% Op Soln 2.5ml ONE (12:45)
[2018-07-17] MEDS ORDERED: Ciprofloxacin Opth Soln 2.5ml ONE (12:45)
[2018-07-17] MEDS ORDERED: BSS 15ml BTL ONE (12:45)
[2018-07-17] MEDS ORDERED: Lidocaine 1% MPF 10mg/ml 5ml ONE ×2 (12:45→13:00)
[2018-07-17] MEDS ORDERED: Povidone-Iodine 5% opth solution ONE (12:45)
[2018-07-17] MEDS ORDERED: Carbachol 0.01% Op Soln 1.5ml vial ONE (12:45)
[2018-07-17] MEDS ORDERED: Maxitrol Opth Oint 3.5gm ONE (12:45)
[2018-07-17] MEDS ORDERED: Acetylcholine Injection (OR) ONE (12:45)
[2018-07-17] MEDS ORDERED: Dexamethasone 4mg/ml vial ONE (12:45)
[2018-07-17] MEDS ORDERED: Bupivacaine 0.75% 30ml vial INJ ONE (12:46)
[2018-07-17] MEDS ORDERED: Tetracaine 0.5% Opth 4ml Soln ONE (12:46)
[2018-07-17] MEDS ORDERED: Sodium Hyaluronate 10 mg/ml 0.85ml ONE (12:55)
[2018-07-17] MEDS ORDERED: Sterile Water Irrig 1000ml IRRIG ONE (13:00)
[2018-07-17] MEDS ORDERED: Propofol 200mg/20ml IV ONE (13:00)
[2018-07-17] MEDS ORDERED: NS Irrig 1000ml ONE (13:00)
[2018-07-17] MEDS ORDERED: LR 1000ml ONE (13:00)
--- NOTE | 2018-07-17 13:43 | Discharge Instructions ---
Discharge Instructions Discharge Instructions Follow Up Orders Continue preoperative eye drops Wear shield at all times except to place eye drops Followup tomorrow in Dr Naidu's office Return to Work/School on: Jul 17, 2018 For Congestive Heart Failure Reminder Report to your physician any weight gain of 5 pounds or more in one week. Jim Naidu MD Jul 17, 2018 13:43
[2018-07-17 13:46] VITALS: BP 140/100
--- NOTE | 2018-07-17 13:46 | Brief Operative Note ---
Immediate Post Operative Note Operative Note Pre-op Diagnosis: Cataract, combined, left eye Procedure: Phaco PC IOL OS Post-op Diagnosis: Cataract, combined, OS Post-op Diagnosis: same as pre-op Surgeon: Shakira Naidu MD MS President & Ceo: none Anesthesiologist: Yenifer Wolf MD Anesthesia: local, MAC Specimen: none Complications: none Fluids: see chart Implant(s) used?: Yes - [facility] ZCB00 21.5 Jim Naidu MD Jul 17, 2018 13:46
[2018-07-17 13:51] VITALS: BP 146/88
[2018-07-17 14:05] VITALS: BP_SYST 144; BP_SYST 149; BP_DIAS 85; BP_DIAS 86
[2018-07-17 14:20] VITALS: BP 131/81
--- NOTE | 2018-07-18 01:45 | Operative Note - Dictated ---
DATE OF OPERATION: 07/17/2018 SURGEON: Jim Naidu M.D. FISH GRADER SURGEON: None. ANESTHESIOLOGIST: Ace Mcclelland M.D. ANESTHESIA: Local/standby/monitored anesthesia care. PREOPERATIVE DIAGNOSIS: Combined cataract, left eye. POSTOPERATIVE DIAGNOSIS: Combined cataract, left eye. PROCEDURE: 1. Phacoemulsification of cataract, left eye. 2. Placement of posterior chamber intraocular lens, left eye (model [id number], power 21.5). SPECIMENS: None. COMPLICATIONS: None. INDICATIONS FOR SURGERY: The patient has had a painless progressive decrease in visual acuity in the left eye secondary to cataract. The patient understands the risks of surgery including infection, bleeding, need for further surgery, loss of vision, no improvement in vision, loss of the eye, loss of life, glaucoma, retinal detachment, understands risks and elects to proceed with surgery. FINDINGS: The patient had a +2 to 3 nuclear sclerotic cataract, subcapsular cataract. OPERATIVE NOTE: After informed consent was obtained, the patient was brought into the operating room, placed in supine position. Cardiac and respiratory monitors were attached. A time-out was performed and all criteria were met and everyone in the room agreed. The left eye was then draped and prepped in sterile manner for ocular surgery. A lid speculum was placed in the eye. A 1% lidocaine preservative-free was injected at the approximate 2 o'clock limbus. Conjunctival peritomy from approximately 2 o'clock to 3 o'clock was made and dissected posteriorly. Hemostasis was maintained with bipolar cautery. A 2.6 mm limbal incision was made centered approximately 2 o'clock and dissected anteriorly. Paracentesis was made at approximately 5 o'clock and Shugarcaine was injected into the anterior chamber followed by Healon. The anterior chamber was then entered using a 2.6 mm keratome through the limbal incision. An anterior capsulorrhexis was then performed. Hydrodissection and hydrodelineation of the lens was performed. Lens was then phacoemulsified using a divide and conquer four-quadrant technique. Residual cortical material was then aspirated. Healon was injected into the anterior chamber and capsular bag. The lens was taken from its package and placed into the cartridge and the cartridge was placed through the limbal incision. The lens was injected into the capsular bag and centered nicely with a Sinskey hook. Healon was aspirated from the anterior chamber in the capsular bag. One 10-0 nylon interrupted suture was then placed through the limbal incision. The knot was rotated and buried. Care was taken during the entire procedure not to touch the wound. The wound was checked and found to be watertight. The wound was visually inspected and the optic and both haptics were noted to be in the bag in the 3 o'clock and 9 o'clock meridian. Jim Naidu M.D. DR: VÍCTOR JOB#: [id number] CC:
== END 2018-07-17 14:30 | disposition home or self-care (01) ==
LOC: SUR 10:20
DX: H25.12 Age-related nuclear cataract, left eye (principal); H25.042 Posterior subcapsular polar age-related cataract, left eye
CPT/HCPCS: 66984; J0171; J1100; J2250; J2704; V2632; 94003; 94150